=== PATIENT | male | born 1965 | race African-American/Black ===

== ENCOUNTER 2016-11-13 12:27 | Emergency (ER) | payer MEDICARE, MEDICAID ==
[~2016-11-13] VITALS: Ht 188 cm; Wt 88.5 kg
[~2016-11-13 12:27] MED LIST: COLCHICINE0.6 M1 PO; COLCRYS0.6 M1 PO; DEPAKOTE ER250 MG ORAL; DEPAKOTE250 MG PO; DIVALPROEX SOD250 M1 PO; INDOCIN25 MG ORAL; INDOCIN50 MG RECTAL; INDOMETHACIN50 MG PO; NORCO 5-325 TA1 EACH ORAL; TUSSIONEX PENN480 ML PO
[2016-11-13] MEDS ORDERED: INDOCIN25 MG ORAL (12:51)
[2016-11-13] MEDS ORDERED: Indomethacin 75 MG CAPSULE.ER ORAL ONE (13:00)
[2016-11-13 13:07] VITALS: BP 121/88
[2016-11-13 13:14] VITALS: BP 121/88
--- NOTE | 2016-11-13 13:43 | Emergency Room Report ---
History of Present Illness General Chief Complaint: Pain Source: Patient Present Illness HPI Patient is a 31-year-old male who presented after increased left upper extremity pain. Patient gradual onset of symptoms. Patient prior history of gout. Patient states that he's had multiple episodes of similar symptoms in the past. Patient ran out of his indomethacin. Patient was requesting a refill of medications. Patient had no recent alcohol use. Patient states that he's modified his diet. Patient states that he's had a gout flares multiple areas Allergies: Coded Allergies: No Known Allergies (Unverified , 03/27/14) Patient History Past Medical History: see triage record Reviewed Nursing Documentation: PMH: Agreed, PSxH: Agreed Nursing Documentation-PMH Hx Diabetes: No Hx Seizures: Yes - Last 2012 Review of Systems All Other Systems: negative except mentioned in HPI Physical Exam Vital Signs Date Time Temp Pulse Resp B/P Pulse Ox O2 Delivery O2 Flow Rate FiO2 11/13/16 12:37 97.9 68 15 121/88 99 Room Air General Appearance: well appearing, no apparent distress, alert, GCS 15 Head: normocephalic, atraumatic ENT: hearing grossly normal, normal voice Neck: full range of motion, supple Respiratory: no respiratory distress, speaking full sentences Musculoskeletal: normal inspection, decreased range of mation, swelling, other - multiple gouty changes to extremities, tophi bilateral upper extremities Neurologic: normal gait Psychiatric: mood/affect normal Skin: no rash Medical Decision Making Diagnostic Impression: Primary Impression: Gout attack ER Course Patient presented for arthritic pain. Differential diagnosis included was not limited to gout, septic joint, fracture, dislocation, among others. Patient's benign exam and does not appear to require any further imaging or laboratory testing at this time. The patient was given Indocin. The patient was advised followup with his primary care physician for further evaluation and treatment. The patient is advised to continue dietary modifications. Avoid alcohol. Last Vital Signs Date Time Temp Pulse Resp B/P Pulse Ox O2 Delivery O2 Flow Rate FiO2 11/13/16 13:14 97.9 79 15 121/88 99 Room Air Status: improved Disposition: HOME, SELF-CARE Condition: Stable Scripts Indomethacin (Indomethacin) 50 Mg Capsule 50 MG ORAL BID, #15 CAP 0 Refills Prov: Brooks Finnegan 11/13/16 Referrals: NOT CHOSEN [facility]/MD,REFERRING (PCP) Patient Instructions: Gout Brooks Finnegan Nov 13, 2016 13:43
== END 2016-11-13 13:18 | disposition home or self-care (01) ==
LOC: EMR 12:55
DX: M10.9 Gout, unspecified (principal)
CPT/HCPCS: 99283

== ENCOUNTER 2016-11-23 10:02 | Emergency (ER) | payer MEDICARE, MEDICAID ==
[~2016-11-23] VITALS: Ht 188 cm; Wt 88.5 kg
[2016-11-23 11:29] VITALS: BP 119/79
[2016-11-23] MEDS ORDERED: ACETAMINOPHEN-1 EAC1 ORAL (12:23)
[2016-11-23 12:29] VITALS: BP 119/79
--- NOTE | 2016-11-23 13:32 | Diagnostic Imaging Report ---
Indications:PAIN Technique: Three or 4 views of the left elbow Comparison: None Findings: Positioning is somewhat limited. Per technologist, patient unable to be positioned optimally due to pain. There is an ill-defined soft tissue mass which is slightly hypoattenuating relative to subcutaneous fat posterior and medial to the medial upper condyle. This measures approximately 4.8 x 2 cm. There is a large erosion of the medial olecranon. No definite acute fractures. No definite joint effusion. The joint spaces are preserved. Impression:No definite acute bony trauma Soft tissue mass adjacent to the medial upper condyle. Per referring physician, has history of gout. 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 Erosion of the olecranon, likely related to the above
--- NOTE | 2016-11-23 14:28 | Diagnostic Imaging Report ---
Indications: PAIN Technique: Two views of the left humerus Comparison: None Findings: No acute fractures. No dislocations. Impression: Negative
--- NOTE | 2016-11-23 17:12 | Emergency Room Report ---
History of Present Illness General Chief Complaint: Pain Source: Patient Present Illness HPI 51-year-old male presents ED complaining of left elbow pain. States 2 days ago he had a seizure and subsequent fall. Patient landed on his left elbow. Patient has history of seizures. Take Depakote. Patient is here complaining of persistent left elbow pain. Pain is a throbbing 8 out of 10, nonradiating. No other aggravating relieving factors. Patient denies any other injuries. Has history of gout. States he has gout in his left wrist. No other aggravating relieving factors. Denies any other associated symptoms Allergies: Coded Allergies: No Known Allergies (Unverified , 03/27/14) Patient History Past Medical History: seizures, other - gout Past Surgical History: none Pertinent Family History: none Social History: Denies: alcohol use, drug use, smoking Immunizations: UTD Reviewed Nursing Documentation: PMH: Agreed, PSxH: Agreed Nursing Documentation-PMH Past Medical History: No History, Except For Hx Diabetes: No Hx Cerebrovascular Accident: No - MEMORY LOSS Hx Seizures: Yes Review of Systems All Other Systems: negative except mentioned in HPI Physical Exam Vital Signs Date Time Temp Pulse Resp B/P Pulse Ox O2 Delivery O2 Flow Rate FiO2 11/23/16 10:14 98.1 82 18 112/82 98 Room Air Sp02 EP Interpretation: reviewed, normal General Appearance: no apparent distress, alert, GCS 15, non-toxic Head: normocephalic Eyes: bilateral eye PERRL, bilateral eye normal inspection ENT: normal ENT inspection Neck: normal inspection Respiratory: normal inspection Cardiovascular #1: normal inspection Gastrointestinal: normal inspection Rectal: deferred Genitourinary: no CVA tenderness Musculoskeletal: decreased range of motion, tender - L elbow. 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 Patient does have a history of gout placed in satish wrap Diagnosis - elbow contusion, gout Stable and discharged to home with prescription for Tylenol #3. continue indomethacin and colchicine as treatment for his gout. apply ice, keep elevated. weight bear as tolerated. Followup with PMD. Return to ED if symptoms recur or worsen Other X-Ray Diagnostic Results Other X-Ray Diagnostic Results : X-Ray Ordered: L elbow, L humerus EP Interpretation: No Findings: no fractures, no dislocation, no soft tissue swelling Number of Views: 3 Other Impression Left elbow-No fracture, no dislocation, no soft tissue swelling, findings suggestive of gouty arthritis Left humerus-No fracture, no dislocation, no soft tissue swelling Last Vital Signs Date Time Temp Pulse Resp B/P Pulse Ox O2 Delivery O2 Flow Rate FiO2 11/23/16 12:29 98.3 78 16 119/79 97 Room Air Status: improved Disposition: HOME, SELF-CARE Condition: Stable Scripts Acetaminophen With Codeine (T#3) (TYLENOL #3 TAB*) Y Tab 1 TAB ORAL Q8H Y for For Pain, #20 TAB Prov: GEETA DUTTON M.D. 11/23/16 Patient Instructions: Elbow Contusion, [id number] GEETA DUTTON M.D. Nov 23, 2016 17:12
== END 2016-11-23 12:29 | disposition home or self-care (01) ==
LOC: EMR 10:46
DX: S50.02XA Contusion of left elbow, initial encounter (principal); W19.XXXA Unspecified fall, initial encounter; Y92.9 Unspecified place or not applicable; M10.9 Gout, unspecified; G40.909 Epilepsy, unspecified, not intractable, without status epilepticus
CPT/HCPCS: 29260; 99283

== ENCOUNTER 2016-12-26 14:28 | Emergency (ER) | payer MEDICARE, MEDICAID ==
[~2016-12-26] VITALS: Ht 188 cm; Wt 88.5 kg
[~2016-12-26 14:28] MED LIST changes: +ACETAMINOPHEN-1 EAC1 ORAL
[2016-12-26] MEDS ORDERED: Indomethacin 25mg cap ORAL ONE (15:00)
[2016-12-26 15:05] VITALS: BP 113/77
[2016-12-26] MEDS ORDERED: COLCHICINE0.6 M1 PO (15:33)
[2016-12-26] MEDS ORDERED: INDOCIN25 MG ORAL (15:33)
[2016-12-26 15:38] VITALS: BP 113/77
--- NOTE | 2016-12-26 16:24 | Emergency Room Report ---
History of Present Illness General Chief Complaint: Edema Source: Patient Present Illness HPI The patient is a 51-year-old male with a history of gout presenting with left hand pain. He states that this is usually where he states his pain from gout. Pain and swelling began 2 days prior after he states he had an excess of high fructose corn syrup. He denies increased protein consumption or alcohol use. Pain is described as a 9 of 10 dull ache and does not radiate from the hand. He has not tried any medications yet. He denies any other symptoms including N, V, F, chills, rash Allergies: Coded Allergies: No Known Allergies (Unverified , 03/27/14) Patient History Past Medical History: see triage record Pertinent Family History: none Reviewed Nursing Documentation: PMH: Agreed, PSxH: Agreed Nursing Documentation-PMH Past Medical History: No History, Except For Hx Diabetes: No Hx Cerebrovascular Accident: No - MEMORY LOSS Hx Seizures: Yes Review of Systems All Other Systems: negative except mentioned in HPI Physical Exam Vital Signs Date Time Temp Pulse Resp B/P Pulse Ox O2 Delivery O2 Flow Rate FiO2 12/26/16 14:49 98.1 65 14 113/77 98 Room Air Sp02 EP Interpretation: reviewed, normal General Appearance: no apparent distress, alert, GCS 15, non-toxic Head: normocephalic, atraumatic Eyes: bilateral eye PERRL, bilateral eye normal inspection ENT: hearing grossly normal, normal pharynx, no angioedema, normal voice Musculoskeletal: swelling - diffuse L hand, tender - diffuse TTP over the L hand Neurologic: alert, oriented x3, responsive, motor strength/tone normal, sensory intact, speech normal Psychiatric: judgement/insight normal, memory normal, mood/affect normal, no suicidal/homicidal ideation Skin: normal color, no rash, warm/dry, well hydrated Lymphatic: no adenopathy Medical Decision Making PA Attestation Dr. Cuvler is my supervising physician. Patient management was discussed with my supervising physician Diagnostic Impression: Primary Impression: Gout Qualified Codes: M10.9 - Gout, unspecified ER Course The patient is a 51-year-old male with a history of gout presenting with left hand pain Ddx considered include but not limited to sprain/strain, fracture, contusion, gout, cellulitis PE: vitals WNL. Left hand diffuse swelling and tenderness to palpation. Tophi present. No erythema Full AROM The patient will be discharged home and needs to follow up with PMD. Prescription for colchicine and indomethacin given. ER precautions given Last Vital Signs Date Time Temp Pulse Resp B/P Pulse Ox O2 Delivery O2 Flow Rate FiO2 12/26/16 15:38 98.1 14 113/77 98 Room Air 12/26/16 15:05 65 Status: improved Disposition: HOME, SELF-CARE Condition: Stable Scripts Colchicine (Colchicine) 0.6 Mg Capsule 0.6 MG PO QHS, #10 CAP Prov: DANNY TEE.A. 12/26/16 Indomethacin (Indomethacin) 50 Mg Capsule 50 MG ORAL Q8H, #15 CAP 0 Refills Prov: DANNY TEE.A. 12/26/16 Patient Instructions: Gout Additional Instructions: I discussed my findings with the patient. All questions and concerns have been answered. Treatment and medication compliance have been addressed. I advised the patient that they need to follow up with PMD in 3-5 days. Return to ED if symptoms worsen, new symptoms arise, or if needed for any reason. Patient verbalized understanding of discharge instructions. ADNNY TEE December 26, 2016 16:24
== END 2016-12-26 15:38 | disposition home or self-care (01) ==
LOC: EMR 15:32
DX: M10.9 Gout, unspecified (principal); M79.89 Other specified soft tissue disorders; Z86.69 Personal history of other diseases of the nervous system and sense organs
CPT/HCPCS: 99284

== ENCOUNTER 2017-02-22 15:47 | Emergency (ER) | payer MEDICARE, MEDICAID ==
[~2017-02-22] VITALS: Ht 188 cm; Wt 88.5 kg
--- NOTE | 2017-02-22 16:30 | Emergency Room Report ---
History of Present Illness General Chief Complaint: Lower Extremity Injury Source: Patient Present Illness HPI 52 YO Male presents to the ED c/O tenderness, swelling and redness with significant sensitivity to the lateral left ankle x 2 days. pt. states he has a hx of gout, and onset was after eating several meals that contained red meat. pt. denies alcohol use. pt. states he is out of his indomethacin at home. pt. denies fevers, chills, rashes, lesions, trauma or fall. pt. states no relieving factors. Denies numbness tingling or loss of sensation or gross motor movements of the extremities, incontinence of bowel or bladder. Denies CP, Palpitations, LOC, AMS, dizziness, Changes in Vision, Sensation, paresthesias, or a sudden severe headache. Allergies: Coded Allergies: No Known Allergies (Unverified , 03/27/14) Patient History Past Medical History: see triage record Past Surgical History: none Pertinent Family History: none Immunizations: UTD Reviewed Nursing Documentation: PMH: Agreed, PSxH: Agreed Nursing Documentation-PMH Past Medical History: No History, Except For Hx Diabetes: No Hx Cerebrovascular Accident: No - MEMORY LOSS Hx Seizures: Yes Review of Systems All Other Systems: negative except mentioned in HPI Physical Exam Vital Signs Date Time Temp Pulse Resp B/P Pulse Ox O2 Delivery O2 Flow Rate FiO2 02/22/17 16:03 98.2 85 18 108/73 100 Room Air Sp02 EP Interpretation: reviewed, normal General Appearance: no apparent distress, alert, GCS 15, non-toxic Head: normocephalic, atraumatic Eyes: bilateral eye PERRL, bilateral eye normal inspection ENT: hearing grossly normal, normal pharynx, no angioedema, normal voice Neck: full range of motion, supple/symm/no masses Respiratory: lungs clear, normal breath sounds, speaking full sentences Cardiovascular #1: regular rate, rhythm, no edema Rectal: deferred Musculoskeletal: back normal, gait/station normal, normal range of motion, no calf tenderness, inflammation - lateral left ankle, FROM, tender - lateral left ankle, erythema noted and increased temp. to palpation. Neurologic: alert, oriented x3, responsive, motor strength/tone normal, sensory intact, speech normal Psychiatric: judgement/insight normal, memory normal, mood/affect normal, no suicidal/homicidal ideation Skin: no rash, warm/dry, well hydrated, other - lateral left ankle, erythema noted and increased temp. to palpation. Medical Decision Making PA Attestation Dr. Marsh is my supervising Physician whom patient management has been discussed with. Diagnostic Impression: Primary Impression: Gout attack Qualified Codes: M10.9 - Gout, unspecified ER Course Pt. presents to the ED c/o Pain and swelling of Left ankle x 2 Day(s). pt states hx of gout, and recently ate moderate amt. of red meat. denies lesions , trauma or fall. denies fevers or chills. - Pt. prescribed burning sensitivity and 10/10 pain. Ddx considered but are not limited to cellulitis, Septic joint, pseudogout fracture, d/L, gout Vital signs: are WNL, pt. is afebrile H&PE are most consistent with recurrent gout attack. ORDERS: none required at this time, the diagnosis is clinical ED INTERVENTIONS: -1.2 mg Colchicine PO DISCHARGE: At this time pt. is stable for d/c to home. Will provide printed patient care instructions, and any necessary prescriptions. Care plan and follow up instructions have been discussed with the patient prior to discharge. Last Vital Signs Date Time Temp Pulse Resp B/P Pulse Ox O2 Delivery O2 Flow Rate FiO2 02/22/17 16:03 98.2 85 18 108/73 100 Room Air Disposition: HOME, SELF-CARE Condition: Stable Scripts Colchicine (Colchicine) 0.6 Mg Capsule 0.6 MG PO DAILY, #2 CAP Prov: Triny Ibrahim 02/22/17 Indomethacin (INDOMETHACIN) 50 Mg Capsule 50 MG PO TID, #15 CAP Prov: Triny Ibrahim 02/22/17 Patient Instructions: Gout, [id number] Additional Instructions: Take medications as directed. Follow up with a Primary Care Provider in 3-5 days, even if your symptoms have resolved. --Please review list of primary care clinics, if you do not already have a primary care provider - Avoid consumption of red meat and alcohol. Return sooner to ED if new symptoms occur, or current symptoms become worse. - Please note that this Emergency Department Report was dictated using [employer] accountant technology software, occasionally this can lead to erroneous entry secondary to interpretation by the dictation equipment. Triny Ibrahim Feb 22, 2017 16:30
[2017-02-22] MEDS ORDERED: COLCHICINE0.6 M1 PO (16:33)
[2017-02-22] MEDS ORDERED: INDOMETHACIN50 MG PO (16:33)
[2017-02-22 16:40] VITALS: BP 108/73
== END 2017-02-22 16:48 | disposition home or self-care (01) ==
LOC: EMR 16:15
DX: M10.9 Gout, unspecified (principal)
CPT/HCPCS: 99284

== ENCOUNTER 2017-05-25 20:12 | Emergency (ER) | payer MEDICAID, MEDICARE ==
[~2017-05-25] VITALS: Ht 188 cm; Wt 88.5 kg
[2017-05-25 20:30] VITALS: BP 116/74
[2017-05-25] MEDS ORDERED: NORCO 5-325 TA1 EACH ORAL (20:42)
[2017-05-25] MEDS ORDERED: INDOMETHACIN50 MG PO (20:42)
[2017-05-25] MEDS ORDERED: COLCHICINE0.6 M1 PO (20:42)
[2017-05-25 20:55] VITALS: BP 116/74
--- NOTE | 2017-05-25 21:35 | Emergency Room Report ---
History of Present Illness General Chief Complaint: Pain Source: Patient Present Illness HPI Patient presents emergency department today complaining of right foot pain. Patient has history of gout. He states that he's having a calcium formation. He does have swelling of right lower extremity. It over the area of the foot. Denies any trauma. No other complaints are noted. Symptoms are fairly typical for his usual gout exacerbation. He is requesting pain medications.No other modifying factors. No other associated signs and symptoms. No other complaints were noted.. Allergies: Coded Allergies: No Known Allergies (Unverified , 03/27/14) Patient History Past Medical History: DM, CVA/TIA, seizures Past Surgical History: none Pertinent Family History: none Social History: Denies: smoking, alcohol use, drug use Reviewed Nursing Documentation: PMH: Agreed, PSxH: Agreed Nursing Documentation-PMH Hx Diabetes: No Hx Cerebrovascular Accident: No - MEMORY LOSS Hx Seizures: Yes Review of Systems All Other Systems: negative except mentioned in HPI Physical Exam Vital Signs Date Time Temp Pulse Resp B/P (MAP) Pulse Ox O2 Delivery O2 Flow Rate FiO2 05/25/17 20:19 98.1 84 16 116/74 100 Room Air Sp02 EP Interpretation: reviewed, normal General Appearance: normal inspection, well appearing, no apparent distress, alert Head: atraumatic Eyes: bilateral eye PERRL ENT: normal ENT inspection, hearing grossly normal, normal voice Neck: normal inspection, full range of motion, supple, no bony tend Respiratory: normal inspection, lungs clear, normal breath sounds, no respiratory distress, no retraction, no wheezing Cardiovascular #1: regular rate, rhythm, no edema Gastrointestinal: normal inspection, normal bowel sounds, non tender, soft, no guarding, no hernia Genitourinary: no CVA tenderness Musculoskeletal: back normal, inflammation - right foot, swelling - right foot Neurologic: normal inspection, alert, responsive, speech normal Psychiatric: normal inspection, judgement/insight normal, mood/affect normal Skin: normal inspection, normal color, no rash Medical Decision Making Diagnostic Impression: Primary Impression: Gout ER Course Patient presents emergency department today complaining of right foot pain. Differential considerations include arthritis, gout, septic joint just name a few. Patient's exam is consistent with gout. I felt the patient require pain medications. Patient has usual exacerbations in this is fairly typical. Therefore I felt that no further workup is indicated. Patient was given pain medications per his request. Patient was also given indomethacin and colchicine.Patient is advised to follow up with primary doctor in 2-3 days and return the emergency room for any worsening symptoms and as needed. Last Vital Signs Date Time Temp Pulse Resp B/P (MAP) Pulse Ox O2 Delivery O2 Flow Rate FiO2 05/25/17 20:19 98.1 84 16 116/74 100 Room Air Status: improved Disposition: HOME, SELF-CARE Condition: Stable Scripts Colchicine (Colchicine) 0.6 Mg Capsule 0.6 MG PO BID, #20 CAP Prov: GINI BETANCOURT M.D. 05/25/17 Indomethacin (INDOMETHACIN) 50 Mg Capsule 50 MG PO TID for 5 Days, #15 CAP Prov: GINI BETANCOURT M.D. 05/25/17 Hydrocodone Bit/Acetaminophen 5-325* (NORCO 5-325*) 1 Each Tablet 1 TAB ORAL Q6H Y for For Pain, #20 TAB 0 Refills Prov: GINI BETANCOURT M.D. 05/25/17 Patient Instructions: Gout, [id number] GINI BETANCOURT M.D. May 25, 2017 21:35
== END 2017-05-25 20:55 | disposition home or self-care (01) ==
LOC: EMR 20:34
DX: M10.9 Gout, unspecified (principal); E11.9 Type 2 diabetes mellitus without complications; Z86.73 Personal history of transient ischemic attack (TIA), and cerebral infarction without residual deficits
CPT/HCPCS: 99284

== ENCOUNTER 2017-07-15 22:53 | Emergency (ER) | payer MEDICARE ==
[~2017-07-15] VITALS: Ht 188 cm; Wt 83.9 kg
[2017-07-15 23:40] VITALS: BP 125/78
[2017-07-16] MEDS ORDERED: Bactrim DS (160mg/800mg) tab ORAL ONE (00:15)
[2017-07-16] MEDS ORDERED: IBUPROFEN600 MG ORAL (00:20)
[2017-07-16] MEDS ORDERED: BACTRIM DS TAB1 EAC1 ORAL (00:20)
--- NOTE | 2017-07-16 00:20 | Emergency Room Report ---
History of Present Illness General Chief Complaint: Skin Rash/Abscess Source: Patient Present Illness HPI This is a 52-year-old male with no past medical history. He presents with pain in his left armpit. Onset for last 3 days. Pain 8/10. Worse with movement. Worse with palpation. No drainage. Never had this problem before. He does shave his armpits. No other complaint. Allergies: Coded Allergies: No Known Allergies (Unverified , 03/27/14) Patient History Past Medical History: none Past Surgical History: none Social History: Denies: smoking Immunizations: other Reviewed Nursing Documentation: PMH: Agreed, PSxH: Agreed Nursing Documentation-PMH Hx Diabetes: No Hx Cerebrovascular Accident: No - MEMORY LOSS Hx Seizures: Yes Review of Systems Eye: Denies: eye pain, blurred vision ENT: Denies: ear pain, nose congestion, throat swelling Respiratory: Denies: cough, shortness of breath Cardiovascular: Denies: chest pain, palpitations Gastrointestinal: Denies: abdominal pain, diarrhea, nausea, vomiting Musculoskeletal: Denies: back pain, joint pain Skin: Denies: rash Neurological: Denies: headache, numbness Endocrine: Denies: increased thirst, increased urine Hematologic/Lymphatic: Denies: easy bruising All Other Systems: negative except mentioned in HPI Physical Exam Vital Signs Date Time Temp Pulse Resp B/P (MAP) Pulse Ox O2 Delivery O2 Flow Rate FiO2 07/15/ 23:21 97.9 73 15 125/78 100 Room Air vitals normal Sp02 EP Interpretation: reviewed, normal General Appearance: well appearing, no apparent distress, alert Head: normocephalic, atraumatic Eyes: bilateral eye PERRL, bilateral eye EOMI ENT: hearing grossly normal, normal pharynx Neck: full range of motion, supple, no meningismus Respiratory: chest non-tender, lungs clear, normal breath sounds Cardiovascular #1: regular rate, rhythm, no murmur Gastrointestinal: normal bowel sounds, non tender, no mass, no organomegaly, no bruit, non-distended Musculoskeletal: back normal, gait/station normal, normal range of motion, other - Left axilla: There is two indurated area measuring about 1 x 2 cm. her is a whitish necrotic center. Psychiatric: mood/affect normal Skin: warm/dry Procedures Incision and Drainage Incision and Drainage : Consent: Verbal Site: Left axilla Blade Size: 11 I & D Procedure: betadine prep, sterile drapes applied, sterile dressing applied Wound Location: axilla Anesthesia: 1% Lidocaine Volume Anesthetic (ccs): 3 Patient Tolerated: Well Complications: None Progress Area clean initially with chlorhexidine. Then with Betadine. I made to incision and there was moderate amount of pus expressed. Loculated area broken up. Wound irrigated. Patient tolerated procedure without a problem. Medical Decision Making Diagnostic Impression: Primary Impression: Abscess of axilla, left ER Course Patient was abscess axilla. No deep infection. We'll discharge home. Last Vital Signs Date Time Temp Pulse Resp B/P (MAP) Pulse Ox O2 Delivery O2 Flow Rate FiO2 07/15/17 23:21 97.9 73 15 125/78 100 Room Air Status: improved Disposition: HOME, SELF-CARE Condition: Stable Scripts Ibuprofen* (MOTRIN*) 600 Mg Tablet 600 MG ORAL Q8H Y for For Pain, #30 TAB 0 Refills Prov: LUCIEN CHAUDHRY M.D. 07/16/17 Trimethoprim/Sulfamethoxazole 160/800* (BACTRIM DS TABLET*) 1 Each Tablet 1 TAB ORAL Q12H, #14 TAB 0 Refills Prov: LUCIEN CHAUDHRY M.D. 07/16/17 Referrals: NOT CHOSEN [facility]/,REFERRING (PCP) Patient Instructions: Abscess Additional Instructions: Followup with your DrJeferson in 2-3 days for recheck. Return if worse. LUCIEN CHAUDHRY M.D. Jul 16, 2017 00:20
[2017-07-16 00:40] VITALS: BP 125/78
== END 2017-07-16 00:40 | disposition home or self-care (01) ==
LOC: EMR 23:51
DX: L03.112 Cellulitis of left axilla (principal)
CPT/HCPCS: 10060; 99284

== ENCOUNTER 2017-08-20 00:18 | Emergency (ER) | payer MEDICARE ==
[~2017-08-20] VITALS: Ht 188 cm; Wt 83.9 kg
[~2017-08-20 00:18] MED LIST changes: +BACTRIM DS TAB1 EAC1 ORAL; +IBUPROFEN600 MG ORAL
[2017-08-20 00:30] VITALS: BP 117/78
[2017-08-20] MEDS ORDERED: BACTRIM DS TAB1 EAC1 ORAL (01:33)
--- NOTE | 2017-08-20 01:33 | Emergency Room Report ---
History of Present Illness General Chief Complaint: General Complaint Source: Patient Present Illness HPI This is a 52-year-old male who had a history of left axilla abscess. It I need about 3 weeks ago. He came in with a right abscess to the axilla. Onset today. Tender to palpation. No drainage. No fever. Allergies: Coded Allergies: No Known Allergies (Unverified , 03/27/14) Patient History Past Medical History: see triage record, old chart reviewed Past Surgical History: other Pertinent Family History: none Social History: Denies: smoking Immunizations: other Reviewed Nursing Documentation: PMH: Agreed, PSxH: Agreed Nursing Documentation-PMH Hx Diabetes: No Hx Cerebrovascular Accident: No - MEMORY LOSS Hx Seizures: Yes Review of Systems Eye: Denies: eye pain, blurred vision ENT: Denies: ear pain, nose congestion, throat swelling Respiratory: Denies: cough, shortness of breath Cardiovascular: Denies: chest pain, palpitations Gastrointestinal: Denies: abdominal pain, diarrhea, nausea, vomiting Musculoskeletal: Denies: back pain, joint pain Skin: Denies: rash Neurological: Denies: headache, numbness Endocrine: Denies: increased thirst, increased urine Hematologic/Lymphatic: Denies: easy bruising All Other Systems: negative except mentioned in HPI Physical Exam Vital Signs Date Time Temp Pulse Resp B/P (MAP) Pulse Ox O2 Delivery O2 Flow Rate FiO2 08/20/17 00:25 98.2 71 15 117/78 97 Room Air vitals normal Sp02 EP Interpretation: reviewed, normal General Appearance: well appearing, no apparent distress, alert Head: normocephalic, atraumatic Eyes: bilateral eye PERRL, bilateral eye EOMI ENT: hearing grossly normal, normal pharynx Neck: full range of motion, supple, no meningismus Respiratory: chest non-tender, lungs clear, normal breath sounds Cardiovascular #1: regular rate, rhythm, no murmur Gastrointestinal: normal bowel sounds, non tender, no mass, no organomegaly, no bruit, non-distended Musculoskeletal: back normal, gait/station normal, normal range of motion, tender - Right axilla: Is a small indurated area measuring about 3-4 mm. Tender to palpation. Neurologic: alert, oriented x3 Psychiatric: mood/affect normal Skin: warm/dry Medical Decision Making Diagnostic Impression: Primary Impression: Abscess of axilla, right ER Course Patient with a small abscess to the right axilla area. I wanted to I&D. Patient was cooperating until the point of any cutting it. Is able to clean it with Betadine and numb it with 1% lidocaine without epinephrine. As I was about to cut it with a scalpel he keeps jerking back and keep looking at it. I am uncomfortable with him not cooperating. I do not want to cut myself workup him in a different area. Explained this to the patient. He wanted to try antibiotics first. Last Vital Signs Date Time Temp Pulse Resp B/P (MAP) Pulse Ox O2 Delivery O2 Flow Rate FiO2 08/20/17 00:25 98.2 71 15 117/78 97 Room Air Status: unchanged Disposition: HOME, SELF-CARE Condition: Stable Scripts Trimethoprim/Sulfamethoxazole 160/800* (BACTRIM DS TABLET*) 1 Each Tablet 1 TAB ORAL Q12H, #14 TAB 0 Refills Prov: LUCIEN CHAUDHRY M.D. 08/20/17 Referrals: NOT CHOSEN IPA/,REFERRING (PCP) Additional Instructions: Clean area with hydrogen peroxide. Followup your DrJeferson in 2-3 days recheck. Return if swelling get worse. LUCIEN CHAUDHRY M.D. Aug 20, 2017 01:33
[2017-08-20 01:43] VITALS: BP 117/78
[2017-08-20] MEDS ORDERED: BACITRACIN-P28.35 GM TP (17:21)
== END 2017-08-20 01:45 | disposition home or self-care (01) ==
LOC: EMR 00:29
DX: L02.411 Cutaneous abscess of right axilla (principal)
CPT/HCPCS: 99283

== ENCOUNTER 2017-08-20 15:52 | Emergency (ER) | payer MEDICARE, MEDICAID ==
[~2017-08-20] VITALS: Ht 188 cm; Wt 83.9 kg
[2017-08-20 16:10] VITALS: BP 110/63
[2017-08-20] MEDS ORDERED: BACITRACIN-P28.35 GM TP (17:21)
--- NOTE | 2017-08-20 17:23 | Emergency Room Report ---
History of Present Illness General Chief Complaint: Skin Rash/Abscess Source: Patient, Medical Record (Ervin Altamirano) Present Illness HPI 52 yo male presents to ER with complaints of abscess in right arm pit. Patient complains of TTP, denies pain with movement. Patient reports being seen in this ER this morning for same complaint; reports doctor did not perform I&D at that time and discharged on antibiotics. Patient states he did not receive prescription for antibiotics with discharge packet. States he was called later by ER nurse to return to [facility] prescription for antibiotic. Patient states he returned to ER to receive prescription and to be seen again to discuss need for I&D. Patient denies fever, chest pain, SOB, rash. (Ervin Altamirano) Allergies: Coded Allergies: No Known Allergies (Unverified , 03/27/14) Patient History Past Medical History: see triage record Immunizations: UTD Reviewed Nursing Documentation: PMH: Agreed, PSxH: Agreed (Ervin Altamirano) Nursing Documentation-PMH Past Medical History: No History, Except For Hx Diabetes: No Hx Cerebrovascular Accident: No - MEMORY LOSS Hx Seizures: Yes (Ervni Altamirano) Review of Systems All Other Systems: negative except mentioned in HPI (Ervin Altamirano) Physical Exam Vital Signs Date Time Temp Pulse Resp B/P (MAP) Pulse Ox O2 Delivery O2 Flow Rate FiO2 08/20/17 16:06 98.4 59 18 102/58 98 Room Air Sp02 EP Interpretation: reviewed, normal General Appearance: no apparent distress, alert, GCS 15, non-toxic Head: normocephalic, atraumatic Eyes: bilateral eye normal inspection, bilateral eye PERRL ENT: hearing grossly normal, normal pharynx, normal voice Neck: full range of motion Respiratory: lungs clear, normal breath sounds, speaking full sentences Cardiovascular #1: regular rate, rhythm Genitourinary: normal inspection, no CVA tenderness Musculoskeletal: back normal, gait/station normal, normal range of motion, non- tender Neurologic: alert, oriented x3, responsive, motor strength/tone normal, sensory intact, speech normal Psychiatric: judgement/insight normal, mood/affect normal Skin: no rash, other - right axilla: <1cm raised erythematous pustule with subcutaneous palpable nodule, TTP, no active bleeding, no pus drainage (Ervin Altamirano) Medical Decision Making PA Attestation Dr. Strong is my supervising physician with whom patient management has been discussed with. (Ervin Altamirano) Diagnostic Impression: Primary Impression: Abscess ER Course Pt. presents to the ED c/o abscess Ddx considered but are not limited to cellulitis, abscess, sebaceous cyst, carbuncle, folliculitis. Vital signs: are WNL, pt. is afebrile ORDERS:None required at this time. ED INTERVENTIONS: None required at this time. DISCHARGE: -Rx provided for Bactrim. Rx was from patients previous visit to ER. -Rx provided for Bacitracin ointment. At this time pt. is stable for d/c to home. Provide printed patient care instructions and any necessary prescriptions. Care plan and follow up instructions have been discussed with the patient prior to discharge. Patient agrees with current treatment plan. Patient instructed to follow-up with primary care provider in 2 - 3 days for wound recheck. Patient questions asked and answered. ER precautions given. Patient instructed to return to ER immediately for any new or worsening of symptoms including but not limited to fever, worsening of pain symptoms. (Ervin Altamirano) ER Course Patient examined by me. Small nodule in axilla without fluctuance. Too small to lola at this time. Plan to cover with antibiotics. Re-evaluated as needed. (Arthur Strong M.D.) Last Vital Signs Date Time Temp Pulse Resp B/P (MAP) Pulse Ox O2 Delivery O2 Flow Rate FiO2 08/20/17 16:10 98.4 72 17 110/63 99 Room Air (Ervin Altamirano) Last Vital Signs Date Time Temp Pulse Resp B/P (MAP) Pulse Ox O2 Delivery O2 Flow Rate FiO2 08/20/17 17:40 98.4 72 17 110/63 99 Room Air Status: unchanged (Arthur Strong M.D.) Disposition: HOME, SELF-CARE Condition: Stable Scripts Bacitracin/Polymyxin B Sulfate (BACITRACIN-POLYMYXIN OINTMENT) 28.35 Gm Oint...g. 1 APPLIC TP BID for 7 Days, GM Prov: Ervin Altamirano 08/20/17 Referrals: NOT CHOSEN IPA/,REFERRING (PCP) Patient Instructions: Abscess Additional Instructions: At this time pt. is stable for d/c to home. Rx provided to patient from previous visit. Rx provided for antibiotic ointment to apply to affected area twice a day. Will provide printed patient care instructions and any necessary prescriptions. Care plan and follow up instructions have been discussed with the patient prior to discharge. Patient instructed to follow-up with primary care provider in 2 - 3 days for wound recheck. Patient questions asked and answered. ER precautions given. Patient instructed to return to ER immediately for any new or worsening of symptoms including but not limited to fever, worsening of pain symptoms. Ervin Altamirano Aug 20, 2017 17:23 Arthur Strong M.D. Aug 25, 2017 09:56
[2017-08-20 17:40] VITALS: BP 110/63
== END 2017-08-20 17:40 | disposition home or self-care (01) ==
LOC: EMR 16:37
DX: L02.411 Cutaneous abscess of right axilla (principal)
CPT/HCPCS: 99283

== ENCOUNTER 2017-08-25 21:38 | Emergency (ER) | payer MEDICARE, MEDICAID ==
[~2017-08-25] VITALS: Ht 188 cm; Wt 83.9 kg
[~2017-08-25 21:38] MED LIST changes: +BACITRACIN-P28.35 GM TP
[2017-08-25 22:00] VITALS: BP 103/65
[2017-08-25] MEDS ORDERED: MUPIROCIN22 GM TOPIC (22:48)
--- NOTE | 2017-08-25 22:49 | Emergency Room Report ---
History of Present Illness General Chief Complaint: General Complaint Source: Patient Present Illness HPI This is a 51-year-old male who get recurrent abscesses. I saw him 2 days ago for right axilla abscess there was small but I want to I&D it. He was too nervous and refuse. He came back the next day and was discharged with antibiotics and he picked up his antibiotic prescribed before. He's been taking it but now or abscess or swollen up. No fever chills but no trauma. No other complaint. Allergies: Coded Allergies: No Known Allergies (Unverified , 03/27/14) Patient History Past Medical History: see triage record, old chart reviewed Past Surgical History: other Pertinent Family History: none Social History: Denies: smoking Immunizations: other Reviewed Nursing Documentation: PMH: Agreed, PSxH: Agreed Nursing Documentation-PMH Past Medical History: No History, Except For Hx Diabetes: No Hx Cerebrovascular Accident: No - MEMORY LOSS Hx Seizures: Yes Review of Systems Eye: Denies: eye pain, blurred vision ENT: Denies: ear pain, nose congestion, throat swelling Respiratory: Denies: cough, shortness of breath Cardiovascular: Denies: chest pain, palpitations Gastrointestinal: Denies: abdominal pain, diarrhea, nausea, vomiting Musculoskeletal: Denies: back pain, joint pain Skin: Denies: rash Neurological: Denies: headache, numbness Endocrine: Denies: increased thirst, increased urine Hematologic/Lymphatic: Denies: easy bruising All Other Systems: negative except mentioned in HPI Physical Exam Vital Signs Date Time Temp Pulse Resp B/P (MAP) Pulse Ox O2 Delivery O2 Flow Rate FiO2 08/25/17 21:51 97.3 99 16 103/65 97 Room Air vitals normal Sp02 EP Interpretation: reviewed, normal General Appearance: well appearing, no apparent distress, alert Head: normocephalic, atraumatic Eyes: bilateral eye PERRL, bilateral eye EOMI ENT: hearing grossly normal, normal pharynx Neck: full range of motion, supple, no meningismus Respiratory: chest non-tender, lungs clear, normal breath sounds Cardiovascular #1: regular rate, rhythm, no murmur Gastrointestinal: normal bowel sounds, non tender, no mass, no organomegaly, no bruit, non-distended Musculoskeletal: back normal, gait/station normal, normal range of motion, other - Right axilla: There are for distinct indurated area. Each measure from 2 mm to 1 cm. Neurologic: alert, oriented x3 Psychiatric: mood/affect normal Skin: warm/dry Procedures Incision and Drainage Incision and Drainage : Consent: Verbal Site: A right axilla Blade Size: 11 I & D Procedure: betadine prep, sterile drapes applied Wound Location: axilla Anesthesia: 1% Lidocaine Volume Anesthetic (ccs): 3 Patient Tolerated: Well Complications: None Progress Area clean with chlorhexidine. Local anesthetic 1% lidocaine without epinephrine. I made a small incision over each abscess. There was scant amount of pus expressed. Patient tolerated procedure without a problem. Medical Decision Making Diagnostic Impression: Primary Impression: Abscess of axilla, right ER Course Present with superficial abscess of the axilla. We'll continue with antibiotics. He felt better now. Last Vital Signs Date Time Temp Pulse Resp B/P (MAP) Pulse Ox O2 Delivery O2 Flow Rate FiO2 08/25/17 21:51 97.3 99 16 103/65 97 Room Air Status: improved Disposition: HOME, SELF-CARE Condition: Stable Scripts Mupirocin* (MUPIROCIN*) 22 Gm Oint...g. 1 APPLIC TOPIC THREE TIMES A DAY, #22 GM Prov: LUCIEN CHAUDHRY M.D. 08/25/17 Additional Instructions: Continue with your antibiotics. Use the new antibiotic ointment. Followup your DrJeferson in 7 days for recheck. Return if worse. LUCIEN CHAUDHRY M.D. Aug 25, 2017 22:49
[2017-08-25 23:41] VITALS: BP 103/65
== END 2017-08-25 23:54 | disposition home or self-care (01) ==
LOC: EMR 22:10
DX: L02.411 Cutaneous abscess of right axilla (principal)
CPT/HCPCS: 10060; 99284

== ENCOUNTER 2017-09-01 12:52 | Emergency (ER) | payer MEDICARE, MEDICAID ==
[~2017-09-01] VITALS: Ht 188 cm; Wt 83.9 kg
[~2017-09-01 12:52] MED LIST changes: +MUPIROCIN22 GM TOPIC
--- NOTE | 2017-09-01 13:25 | Emergency Room Report ---
History of Present Illness General Chief Complaint: Skin Rash/Abscess Source: Patient Present Illness HPI 52-year-old male presents to ER for a wound check of skin abscess drained one week ago. Patient states he complete his course of antibiotics and wants to know if he needs more antibiotics Patient states he is using topical antibiotic cream provided in ER. Patient reports relief of pain and erythema at site of drainage. Patient states he has an appointment with his primary care provider on September 05 2017 for followup of symptoms. Patient denies fever, chest pain, nausea, vomiting, SOB. Allergies: Coded Allergies: No Known Allergies (Unverified , 03/27/14) Patient History Past Medical History: see triage record Reviewed Nursing Documentation: PMH: Agreed, PSxH: Agreed Nursing Documentation-PMH Past Medical History: No History, Except For Hx Diabetes: No Hx Cerebrovascular Accident: No - MEMORY LOSS Hx Seizures: Yes Review of Systems All Other Systems: negative except mentioned in HPI Physical Exam Vital Signs Date Time Temp Pulse Resp B/P (MAP) Pulse Ox O2 Delivery O2 Flow Rate FiO2 09/01/17 13:07 97.9 76 17 115/77 98 Room Air Sp02 EP Interpretation: reviewed, normal General Appearance: no apparent distress, alert, GCS 15, non-toxic Head: normocephalic, atraumatic Eyes: bilateral eye normal inspection, bilateral eye PERRL ENT: hearing grossly normal, normal pharynx, no angioedema, normal voice Neck: full range of motion Respiratory: chest non-tender, lungs clear, normal breath sounds, speaking full sentences Cardiovascular #1: regular rate, rhythm, no edema Musculoskeletal: back normal, gait/station normal, normal range of motion, non- tender Neurologic: alert, oriented x3, responsive, motor strength/tone normal, sensory intact, speech normal Psychiatric: mood/affect normal Skin: normal color, no rash, warm/dry, palpation normal, other - right axilla: <1cm hypertrophic scars x3, wounds closed, no erythema, no edmea, no TTP, sensation intact, no signs of infection Medical Decision Making PA Attestation Dr. Garcia is my supervising Physician whom patient management has been discussed with. Diagnostic Impression: Primary Impression: Wound check, abscess ER Course Pt. presents to the ED requesting wound check of drained abscess. Ddx considered but are not limited to cellulitis, abscess, carbuncle, folliculitis. Vital signs: are WNL, pt. is afebrile ORDERS: none required at this time. ED INTERVENTIONS: none required at this time. Wound has no signs of infection., no erythema, edema, TTP, sensation is intact to light touch. Patient is resting comfortably, in no acute distress, non-toxic appearing. DISCHARGE: Patient decline need for pain medication at this time. Patient instructed to continue with topical antibiotic cream per initial ER instructions. At this time pt. is stable for d/c to home. Will provide printed patient care instructions and any necessary prescriptions. Care plan and follow up instructions have been discussed with the patient prior to discharge. Patient instructed to follow-up with primary care provider at scheduled appointment for further treatment and referral. Patient questions asked and answered. ER precautions given. Patient instructed to return to ER immediately for any new or worsening of symptoms including but not limited to fever, worsening of pain symptoms. Last Vital Signs Date Time Temp Pulse Resp B/P (MAP) Pulse Ox O2 Delivery O2 Flow Rate FiO2 09/01/17 13:07 97.9 76 17 115/77 98 Room Air Disposition: HOME, SELF-CARE Condition: Stable Patient Instructions: Wound Infection Additional Instructions: Followup with primary care provider at scheduled appointment on September 05. At that time discuss further referral to dermatology and surgeon as needed for recurring abscess. Take medications as directed. Patient questions asked and answered. ER precautions given, patient instructed to return to ER immediately for any new or worsening of symptoms. Ervin Altamirano Sep 01, 2017 13:25
[2017-09-01 13:29] VITALS: BP 115/77
[2017-09-01 13:30] VITALS: BP 115/77
== END 2017-09-01 13:30 | disposition home or self-care (01) ==
LOC: EMR 13:23
DX: Z48.00 Encounter for change or removal of nonsurgical wound dressing (principal); L02.411 Cutaneous abscess of right axilla
CPT/HCPCS: 99281

== ENCOUNTER 2017-09-03 15:51 | Emergency (ER) | payer MEDICARE, MEDICAID ==
[~2017-09-03] VITALS: Ht 188 cm; Wt 83.9 kg
[2017-09-03] MEDS ORDERED: INDOMETHACIN50 MG PO (16:18)
[2017-09-03] MEDS ORDERED: DEPAKENE250 MG ORAL (16:18)
--- NOTE | 2017-09-03 16:32 | Emergency Room Report ---
History of Present Illness General Chief Complaint: Pain Source: Patient Present Illness HPI 52 yo male patient presents to ER complaining of gout attack in left wrist. Patient reports history of gout treated by primary care; states he has not been to see primary care provider for gout tx recently. Patient states symptoms began 2 days ago following eating a pastrami sandwich; patient reports pain symptoms have been increasing since that time. Patient reports he has not been taking his gout medication for several months. Patient reports pain and swelling of left wrist; states gout symptoms have affected this wrist before. Patient denies history of trauma to wrist. Patient denies fever, chest pain, SOB. Allergies: Coded Allergies: No Known Allergies (Unverified , 03/27/14) Patient History Past Medical History: see triage record Reviewed Nursing Documentation: PMH: Agreed, PSxH: Agreed Nursing Documentation-PMH Hx Diabetes: No Hx Cerebrovascular Accident: No - MEMORY LOSS Hx Seizures: Yes Review of Systems All Other Systems: negative except mentioned in HPI Physical Exam Vital Signs Date Time Temp Pulse Resp B/P (MAP) Pulse Ox O2 Delivery O2 Flow Rate FiO2 09/03/17 16:13 98.4 74 17 126/84 99 Room Air Sp02 EP Interpretation: reviewed, normal General Appearance: no apparent distress, alert, GCS 15, non-toxic Head: normocephalic, atraumatic Eyes: bilateral eye normal inspection, bilateral eye PERRL ENT: hearing grossly normal, normal pharynx, no angioedema, normal voice Neck: full range of motion, supple/symm/no masses Respiratory: chest non-tender, lungs clear, normal breath sounds, speaking full sentences Cardiovascular #1: regular rate, rhythm, no edema Cardiovascular #2: 2+ radial (R), 2+ radial (L) Musculoskeletal: digits/nails normal, gait/station normal, decreased range of motion - left wrist: secondary to pain, swelling - left wrist, dorsal aspect, tender - left wrist, dorsal aspect Neurologic: alert, oriented x3, responsive, motor strength/tone normal, sensory intact, speech normal Psychiatric: mood/affect normal Skin: normal color, no rash, warm/dry, well hydrated, other - left wrist: no gouty tophi, no warmth to touch Medical Decision Making PA Attestation Dr. Fagan is my supervising Physician whom patient management has been discussed with. Diagnostic Impression: Primary Impression: Gout attack ER Course Pt. presents to the ED c/o left wrist pain. Ddx considered but are not limited to gout, strain, sprain, contusion, cellulitis. Vital signs: are WNL, pt. is afebrile ORDERS: An X-ray of the left wrist was ordered, results show no acute disease, per the preliminary reading ED INTERVENTIONS: -Indomethacin provided in ER for pain. Patient reports symptoms improved following administration of pain medication. DISCHARGE: -Rx provided for Ibuprofen for pain symptoms. -Rx provided for Colchicine. Provided wrist splint to patient. At this time pt. is stable for d/c to home. Will provide printed patient care instructions, and any necessary prescriptions. Patient instructed to follow with primary care provider in 3 - 5 days and to discuss further gout and wrist pain treatment. Pain understands and agrees to treatment plan. Care plan and follow up instructions have been discussed with the patient prior to discharge. Take medications as directed. Patient questions asked and answered. ER precautions given, patient instructed to return to ER immediately for any new or worsening of symptoms. Other X-Ray Diagnostic Results Other X-Ray Diagnostic Results : X-Ray ordered: left wrist # of Views/Limited Vs Complete: 2 View Indication: Pain EP Interpretation: Yes PA Xray: Interpretation reviewed, by supervising MD, and agrees with findings. Interpretation: no dislocation, no soft tissue swelling, no fractures PA Scribe Text Santos Altamirano PA-C Last Vital Signs Date Time Temp Pulse Resp B/P (MAP) Pulse Ox O2 Delivery O2 Flow Rate FiO2 09/03/17 16:13 98.4 74 17 126/84 99 Room Air Disposition: HOME, SELF-CARE Condition: Stable Scripts Colchicine (COLCRYS) 0.6 Mg Tablet 0.6 MG PO BID for 7 Days, #14 TAB Prov: Ervin Altamirano 09/03/17 Indomethacin (Indomethacin) 50 Mg Capsule 25 MG ORAL Q8H for 7 Days, #21 CAP 0 Refills Prov: Ervin Altamirano 09/03/17 Patient Instructions: Gout, [id number] Additional Instructions: Followup with primary care provider in 3 -5 days. Take medications as directed. Patient questions asked and answered. ER precautions given, patient instructed to return to ER immediately for any new or worsening of symptoms. Ervin Altamirano Sep 03, 2017 16:32
[2017-09-03] MEDS ORDERED: COLCRYS0.6 M1 PO (16:41)
[2017-09-03] MEDS ORDERED: INDOCIN25 MG ORAL (16:41)
[2017-09-03] MEDS ORDERED: Indomethacin 75 MG CAPSULE.ER ORAL ONE (18:00)
[2017-09-03 20:26] VITALS: BP 130/83
--- NOTE | 2017-09-04 11:31 | Diagnostic Imaging Report ---
Clinical Indication:Pain Technique: 3 views of the left wrist Comparison: None Findings: There is a large circular defects in the triquetrum with disruption of the lateral cortex. A small ossific density is seen immediately adjacent to it. Small lucency are seen within the lunate and scaphoid. No definite acute fractures. Impression: No acute bony trauma Large osseous defect in the triquetrum. Review of the electronic medical record indicates patient has a history of gout. 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
== END 2017-09-03 18:30 | disposition home or self-care (01) ==
LOC: EMR 16:30
DX: M10.9 Gout, unspecified (principal)
CPT/HCPCS: 99284

== ENCOUNTER 2018-01-29 16:22 | Emergency (ER) | payer MEDICARE, MEDICAID ==
[~2018-01-29] VITALS: Ht 188 cm; Wt 86.2 kg
[~2018-01-29 16:22] MED LIST changes: +DEPAKENE250 MG ORAL
[2018-01-29] MEDS ORDERED: Indomethacin 25mg cap ORAL ONE (16:45)
[2018-01-29 16:49] VITALS: BP 111/73
--- NOTE | 2018-01-29 16:52 | Emergency Room Report ---
History of Present Illness General Chief Complaint: Upper Extremity Injury Source: Patient (Ervin Altamirano) Present Illness HPI 53-year-old male patient presents to ER complaining of left hand pain 5 days. Reports that he had a seizure 5 days ago that was observed, states that he he believes he fell on his left hand and injured it at that time. Denies having any imaging done at that time. Denies going to the hospital following seizure. Reports no seizure since that time. Reports taking valproic acid. Denies headache, fever, chest pain, shortness of breath, neck pain, abdominal pain. Reports left hand pain worsening since that time. Reports swelling in left hand. Reports history of gout, states that he has history of symptoms in the hand and wrist, states has not taken medications. Reports he is right-hand dominant. reports history of diabetes and smoking. Requesting refill of gout medications. (Ervin Altamirano) Allergies: Coded Allergies: No Known Allergies (Unverified , 03/27/14) Patient History Past Medical History: see triage record Reviewed Nursing Documentation: PMH: Agreed; PSxH: Agreed (Ervin Altamirano) Nursing Documentation-PMH Past Medical History: No History, Except For Hx Diabetes: No Hx Cerebrovascular Accident: No - MEMORY LOSS Hx Seizures: Yes (Ervin Altamirano) Review of Systems All Other Systems: negative except mentioned in HPI (Ervin Altamirano) Physical Exam Vital Signs Date Time Temp Pulse Resp B/P (MAP) Pulse Ox O2 Delivery O2 Flow Rate FiO2 18 16:33 98.6 91 18 111/73 95 Room Air 98.6 Sp02 EP Interpretation: reviewed, normal General Appearance: well appearing, no apparent distress, alert, GCS 15, non- toxic Head: normocephalic, atraumatic, other - negative [place]jo sign, negative raccoon eyes, no skull depression Eyes: bilateral eye normal inspection, bilateral eye PERRL, bilateral eye EOMI ENT: hearing grossly normal, normal pharynx, no angioedema, normal voice, TMs + canals normal, uvula midline, moist mucus membranes Neck: full range of motion, no bony tend Respiratory: lungs clear, normal breath sounds, no rhonchi, no respiratory distress, no accessory muscle use, no wheezing, speaking full sentences Cardiovascular #1: regular rate, rhythm, no edema Cardiovascular #2: 2+ radial (R), 2+ radial (L) Musculoskeletal: back normal, digits/nails normal, gait/station normal, decreased range of motion, swelling, other - erythema and edema of the dorsum of left hand, tender Neurologic: alert, oriented x3, responsive, loss prevention operations manager III-XII nml as tested, motor strength/tone normal, sensory intact, cerebellar normal, normal gait, speech normal Psychiatric: mood/affect normal Skin: no rash (Ervin Altamirano) Medical Decision Making PA Attestation Dr. Bella is my supervising Physician whom patient management has been discussed with. (Ervin Altamirano) Diagnostic Impression: Primary Impression: Left hand pain Additional Impression: Cellulitis ER Course Pt. presents to the ED c/o left hand pain.. Ddx considered but are not limited to fracture, sprain, strain, contusion, dislocation. No fever, nontoxic appearing, low suspicion for septic joint. no fusiform swelling of digits, no tenderness to palpation along the flexor tendons, low suspicion for flexor tenosynovitis. Vital signs: are WNL, pt. is afebrile Ordered X-ray and pain medication. ER COURSE Provided with pain medication. An X-ray of the left hand no acute fracture, soft tissue swelling on dorsum of hand, degenerative changes noted, cystic changes about scaphoid and lunate per the official reading. An X-ray of the left wrist no acute fracture, degenerative changes per preliminary reading. No pallor, pulselessness, paresthesias, low suspicion for compartment syndrome. Erythema and edema on dorsum of left hand, warmth to touch, likely cellulitis, will admit patient. ordered basic labs and IV antibiotics. Patient seen and evaluated by Dr. Bella, agrees with treatment plan. patient okay with admission at this time. Informed by nurse the patient no longer wants to be admitted, wants to be discharged home immediately. Went to speak with patient, patient became angry and started yelling at myself and staff. Patient states did not want labs drawn and admission. Explained risks of leaving to patient including worsening of infection, possible loss of use of hand, sepsis, and . patient reports understanding and states he does not believe that is going to happen to him. Does not want to be admitted, wants to leave. patient elected to leave AMA. Patient did not sign AMA before leaving. Will provide patient with antibiotics and gout medication. ER precautions given. - Please note that this Emergency Department Report was dictated using [employer] feeder [employer]om[employer] technology software, occasionally this can lead to erroneous entry secondary to interpretation by the dictation equipment. (Ervin Altamirano) ER Course Upon my evaluation, patient has left hand dorsal compartment cellulitis with significant edema erythema warmth and tenderness, do not suspect any single joint involvement, do not suspect any flexor component to this infection, he is able to range elbow fully, wrist partially, all digits partially, and it seems that he likely developed some sort of inoculation of the dorsal compartment of his hand when he had a seizure, although there is no obvious laceration or abrasion visible currently. (BROOKS BELLA M.D) Other X-Ray Diagnostic Results Other X-Ray Diagnostic Results #1: X-Ray ordered: left wrist # of Views/Limited Vs Complete: 3 View Indication: Swelling EP Interpretation: Yes PA Xray: Interpretation reviewed, by supervising MD, and agrees with findings. Interpretation: no dislocation, no soft tissue swelling, no fractures PA Scribe Text Santos Altamirano PA-C Other X-Ray Diagnostic Results #2: X-Ray ordered: left hand # of Views/Limited Vs Complete: 3 View Indication: Swelling EP Interpretation: Yes PA Xray: Interpretation reviewed, by supervising MD, and agrees with findings. Interpretation: no dislocation, no fractures, other - soft tissue swelling, degenerative changes Impression: Other - soft tissue swelling, degenerative changes PA Scribe Text Santos Altamirano PA-C (Ervin Altamirano) Last Vital Signs Date Time Temp Pulse Resp B/P (MAP) Pulse Ox O2 Delivery O2 Flow Rate FiO2 01/29/18 16:33 98.6 91 18 111/73 95 Room Air 98.6 (Ervin Altamirano) Disposition: ELOPED Condition: Serious Scripts Trimethoprim/Sulfamethoxazole 160/800* (BACTRIM DS TABLET*) 1 Each Tablet 1 TAB ORAL TWICE A DAY for 7 Days, #14 TAB Prov: Ervin Altamirano 01/29/18 Cephalexin* (KEFLEX*) 500 Mg Capsule 500 MG ORAL EVERY 12 HOURS, #14 CAP 0 Refills Prov: Ervin Altamirano 01/29/18 Colchicine (Colchicine) 0.6 Mg Capsule 0.6 MG PO BID, #30 CAP Prov: Ervin Altamirano 01/29/18 Indomethacin (INDOMETHACIN) 50 Mg Capsule 50 MG PO BID, #30 CAP Prov: Ervin Altamirano 01/29/18 Patient Instructions: Cellulitis, [id number], Gout, Wrist Pain, [id number] Additional Instructions: Patient instructed to follow up with primary care provider and discuss further referral at that time. Patient instructed on RICE method: rest, ice, compression, elevation. Patient instructed to NWB. Adhere to gout diet, continue to take gout medication as previously instructed. Take medications as directed. Patient questions asked and answered. ER precautions given, patient instructed to return to ER immediately for any new or worsening of symptoms. Ervin Altamirano Jan 29, 2018 16:52 BROOKS BELLA M.D Jan 29, 2018 19:13
[2018-01-29] MEDS ORDERED: INDOMETHACIN50 MG PO (18:44)
[2018-01-29] MEDS ORDERED: COLCHICINE0.6 M1 PO (18:44)
[2018-01-29] MEDS ORDERED: Morphine Sulfate 4mg/ml Inj IVP ONE (19:15)
[2018-01-29] MEDS ORDERED: Vancomycin 1500mg IVPB ONE (19:30)
[2018-01-29] MEDS ORDERED: LORazepam 1mg tab ORAL ONE (19:30)
[2018-01-29] MEDS ORDERED: CEPHALEXIN500 MG ORAL (19:31)
[2018-01-29] MEDS ORDERED: BACTRIM DS TAB1 EAC1 ORAL (19:31)
[2018-01-29 19:40] VITALS: BP 111/73
--- NOTE | 2018-01-30 11:29 | Diagnostic Imaging Report ---
Indication: Pain left wrist pain Findings: 3 views of the left wrist were obtained. Cystic changes are noted within the first row carpal bones. There is narrowing and osteophyte formation involving the radial carpal joint. Generalized soft tissue swelling is present. There is a small well-corticated osseous fragment adjacent to the ulnar styloid probably indicative of an old fracture. IMPRESSION: Soft tissue swelling nonspecific. No acute fracture appreciated. Ulnar styloid ossicle is probably old fracture. Moderate arthrosis of the wrist as described above.
--- NOTE | 2018-01-30 11:30 | Diagnostic Imaging Report ---
Indication: pain. Left hand pain Findings: 3 views of the left hand were obtained. No acute fractures appreciated. There is generalized soft tissue swelling of the hand and wrist which is nonspecific. Bones are osteopenic. Fairly extensive cystic changes are noted throughout the carpal bones. Consider CPPD or other inflammatory arthropathy. IMPRESSION: No acute injury identified. Multiple cysts within the carpal bones. Consider CPPD or other inflammatory arthropathy versus osteoarthrosis.
== END 2018-01-29 19:45 | disposition other institution (70) ==
LOC: EMR 16:53 → CANBEDREQ 19:44 → EMR 19:45
DX: L03.114 Cellulitis of left upper limb (principal); M85.642 Other cyst of bone, left hand
CPT/HCPCS: 99284

== ENCOUNTER 2018-01-31 09:23 | Emergency (ER) | payer MEDICARE, MEDICAID ==
[~2018-01-31] VITALS: Ht 188 cm; Wt 86.2 kg
[~2018-01-31 09:23] MED LIST changes: +CEPHALEXIN500 MG ORAL
--- NOTE | 2018-01-31 11:25 | Diagnostic Imaging Report ---
EXAM: XR Left Wrist Complete, 3 or More Views CLINICAL HISTORY: PAIN TECHNIQUE: Frontal, lateral and oblique views of the left wrist. COMPARISON: X-rays of the left hand dated 01/31/18. FINDINGS: Bones/joints: Age-indeterminate minimally displaced avulsion fracture of the ulnar styloid process. Dorsal cortical irregularity of the carpal bones on lateral projection. Mild degenerative joint space narrowing at the radiocarpal joint. Soft tissues: Soft tissue swelling around the wrist and dorsal soft tissue swelling of the hand. No radiopaque foreign body. IMPRESSION: 1. Age-indeterminate minimally displaced avulsion fracture of the ulnar styloid process. 2. Dorsal cortical irregularity of the carpal bones on lateral projection. This is nonspecific but cannot exclude a subtle triquetral fracture. Recommend correlation with point tenderness. 3. Soft tissue swelling around the wrist and dorsal soft tissue swelling of the hand.
--- NOTE | 2018-01-31 11:28 | Diagnostic Imaging Report ---
EXAM: XR Left Hand Complete, 3 or More Views CLINICAL HISTORY: PAIN TECHNIQUE: Frontal, lateral and oblique views of the left hand. COMPARISON: Left wrist x-ray dated 01/31/18 and 09/03/17. Left hand x-ray dated 01/29/18. FINDINGS: Bones/joints: Small avulsion fracture fragment of the ulnar styloid process, not significant changed compared to 09/03/17. Dorsal irregularity of the carpal bones on lateral projection, not significantly changed compared to 09/03/17, possibly related to remote triquetral fracture. Mild degenerative joint space narrowing in the interphalangeal and radiocarpal joints. Soft tissues: Soft tissue swelling along the dorsal aspect of the hand. No radiodense foreign bodies. No soft tissue gas lucencies. IMPRESSION: 1. Small avulsion fracture fragment of the ulnar styloid process, not significant changed compared to 09/03/17. 2. Dorsal irregularity of the carpal bones on lateral projection, not significantly changed compared to 09/03/17, possibly related to remote triquetral fracture. 3. Soft tissue swelling along the dorsal aspect of the hand.
[2018-01-31] MEDS ORDERED: NORCO 5-325 TA1 EACH ORAL (12:06)
[2018-01-31 12:26] VITALS: BP 164/82
--- NOTE | 2018-01-31 12:28 | Emergency Room Report ---
History of Present Illness General Chief Complaint: Pain Source: Patient, Medical Record Present Illness HPI Patient presents to the ER today complaining of left hand pain. Patient has a history of seizures. He states that he woke up with left hand pain after seizure he thinks he might have injured it during the seizure. He was actually here in the emergency department about a day or so ago at that time refused x- rays treatment. But now he is back requesting x-rays. He denies any chest pain shortness breath. Patient was offered pain medication but he declined. No other modifying factors. No other associated signs and symptoms. No other complaints were noted. Allergies: Coded Allergies: No Known Allergies (Unverified , 03/27/14) Patient History Past Medical History: seizures Past Surgical History: none Pertinent Family History: none Social History: Denies: smoking, alcohol use, drug use Reviewed Nursing Documentation: PMH: Agreed; PSxH: Agreed Nursing Documentation-PMH Past Medical History: No History, Except For Hx Diabetes: No Hx Cerebrovascular Accident: No - MEMORY LOSS Hx Seizures: Yes Review of Systems All Other Systems: negative except mentioned in HPI Physical Exam Vital Signs Date Time Temp Pulse Resp B/P (MAP) Pulse Ox O2 Delivery O2 Flow Rate FiO2 01/31/18 09:37 98.2 94 18 122/82 95 Room Air 98.2 Sp02 EP Interpretation: reviewed, normal General Appearance: normal inspection, alert, other - Mild discomfort due to pain in left wrist. Head: atraumatic Eyes: bilateral eye normal inspection ENT: normal ENT inspection, hearing grossly normal, normal voice Neck: normal inspection, full range of motion, supple, no bony tend Respiratory: normal inspection, lungs clear, normal breath sounds, no respiratory distress, no retraction, no wheezing Cardiovascular #1: regular rate, rhythm, no edema Gastrointestinal: normal inspection, normal bowel sounds, non tender, soft, no guarding, no hernia Genitourinary: no CVA tenderness Musculoskeletal: decreased range of motion - Due to pain in the left wrist, swelling - Left wrist and hand. Neurologic: normal inspection, alert, responsive, speech normal Psychiatric: normal inspection, judgement/insight normal, mood/affect normal Skin: normal inspection, normal color, no rash Procedures Splinting Splinting : Consent: Verbal Location: Left wrist Pre-Made Type: velcro Splint: thumb spica Pre-Proc Neuro Vasc Exam: normal Post-Proc Neuro Vasc Exam: normal Patient Tolerated: Well Complications: None Medical Decision Making Diagnostic Impression: Primary Impression: Wrist fracture, left ER Course Patient presents emergency department today complaining of wrist pain. Differential considered since include fracture dislocation versus strain. Given patient's presentation I felt x-rays are indicated. Patient's x-rays showed avulsion fracture of the ulnar styloid. This is unknown duration. There is also a questionable triquetral fracture. This however was unchanged from before. Given patient's presentation and swelling however I felt the patient could have reinjured his wrist. Patient was placed in a thumb spica advised follow with orthopedics.Patient is advised to follow up with primary doctor in 2-3 days and return the emergency room for any worsening symptoms and as needed. Other X-Ray Diagnostic Results Other X-Ray Diagnostic Results : X-Ray ordered: Left wrist and left hand x-ray # of Views/Limited Vs Complete: 3 View Impression: Other - Questionable ulnar fracture per radiology Last Vital Signs Date Time Temp Pulse Resp B/P (MAP) Pulse Ox O2 Delivery O2 Flow Rate FiO2 01/31/18 09:37 98.2 94 18 122/82 95 Room Air 98.2 Status: improved Disposition: HOME, SELF-CARE Condition: Stable Scripts Hydrocodone Bit/Acetaminophen 5-325* (NORCO 5-325*) 1 Each Tablet 1 TAB ORAL Q6H PRN for For Pain, #20 TAB 0 Refills Prov: Sami Robertson MD 01/31/18 Patient Instructions: Wrist Splint, Wrist Fracture Sami Robertson MD Jan 31, 2018 12:28
== END 2018-01-31 12:26 | disposition home or self-care (01) ==
LOC: EMR 09:59
DX: S52.612A Displaced fracture of left ulna styloid process, initial encounter for closed fracture (principal); X58.XXXA Exposure to other specified factors, initial encounter; Y92.9 Unspecified place or not applicable; Z86.69 Personal history of other diseases of the nervous system and sense organs
CPT/HCPCS: 29280; 99284

== ENCOUNTER 2018-03-24 | Emergency (ER) | payer MEDICARE, MEDICAID ==
[~2018-03-24] VITALS: Ht 188 cm; Wt 83.9 kg
[2018-03-24 00:10] VITALS: BP 108/70
[2018-03-24] MEDS ORDERED: BACTRIM DS TAB1 EAC1 ORAL (00:37)
[2018-03-24] MEDS ORDERED: INDOMETHACIN50 MG PO (00:37)
--- NOTE | 2018-03-24 00:38 | Emergency Room Report ---
History of Present Illness General Chief Complaint: Pain Source: Patient, Caregiver Present Illness HPI This a 53-year-old male with a history of seizure and gout. He's been here multiple time for left wrist/hand pain. He presents with chief complaint of left hand/wrist pain for about a week. He thinks his gout is acting up. No trauma. Pain is 10 out of 10. Worse with movement. Worse with palpation. Denies any drug use. No fever chills but no trauma. No recent seizure. Allergies: Coded Allergies: No Known Allergies (Unverified , 03/27/14) Patient History Past Medical History: see triage record, old chart reviewed, seizures Past Surgical History: other Pertinent Family History: none Social History: Denies: smoking Immunizations: other Reviewed Nursing Documentation: PMH: Agreed; PSxH: Agreed Nursing Documentation-PMH Hx Diabetes: No Hx Cerebrovascular Accident: No - MEMORY LOSS Hx Seizures: Yes Review of Systems Eye: Denies: eye pain, blurred vision ENT: Denies: ear pain, nose congestion, throat swelling Respiratory: Denies: cough, shortness of breath Cardiovascular: Denies: chest pain, palpitations Gastrointestinal: Denies: abdominal pain, diarrhea, nausea, vomiting Musculoskeletal: Reports: joint pain; Denies: back pain Skin: Denies: rash Neurological: Denies: headache, numbness Endocrine: Denies: increased thirst, increased urine Hematologic/Lymphatic: Denies: easy bruising All Other Systems: negative except mentioned in HPI Physical Exam Vital Signs Date Time Temp Pulse Resp B/P (MAP) Pulse Ox O2 Delivery O2 Flow Rate FiO2 03/24/18 00:09 98.3 78 16 101/73 98 Room Air 98.2 vitals normal Sp02 EP Interpretation: reviewed, normal General Appearance: well appearing, no apparent distress, alert Head: normocephalic, atraumatic Eyes: bilateral eye PERRL, bilateral eye EOMI ENT: hearing grossly normal, normal pharynx Neck: full range of motion, supple, no meningismus Respiratory: chest non-tender, lungs clear, normal breath sounds Cardiovascular #1: regular rate, rhythm, no murmur Gastrointestinal: normal bowel sounds, non tender, no mass, no organomegaly, no bruit, non-distended Musculoskeletal: back normal, gait/station normal, normal range of motion, other - Left hand: There is tenderness to the base of the thumb and radial aspect of the wrist. Some mild warmth. Decreased range of motion secondary to pain. Pulses normal. Sensation normal. Psychiatric: mood/affect normal Skin: warm/dry Procedures Splinting Splinting : Consent: Verbal Location: left wrist Pre-Made Type: velcro Splint: volar Pre-Proc Neuro Vasc Exam: normal Post-Proc Neuro Vasc Exam: normal Patient Tolerated: Well Complications: None Medical Decision Making Diagnostic Impression: Primary Impression: Gout Qualified Codes: M10.9 - Gout, unspecified Additional Impression: Cellulitis of wrist ER Course Patient with left wrist injury. This is a chronic problem. This could be gout. Could also be some mild cellulitis. No evidence of any septic joint or abscess. We'll discharge home. Last Vital Signs Date Time Temp Pulse Resp B/P (MAP) Pulse Ox O2 Delivery O2 Flow Rate FiO2 03/24/18 00:09 98.3 78 16 101/73 98 Room Air 98.2 Status: unchanged Disposition: HOME, SELF-CARE Condition: Stable Scripts Trimethoprim/Sulfamethoxazole 160/800* (BACTRIM DS TABLET*) 1 Each Tablet 1 TAB ORAL Q12H, #14 TAB 0 Refills Prov: LUCIEN CHAUDHRY M.D. 03/24/18 Indomethacin (INDOMETHACIN) 50 Mg Capsule 50 MG PO TID, #30 CAP Prov: LUCIEN CHAUDHRY M.D. 03/24/18 Referrals: NOT CHOSEN IPA/,REFERRING (PCP) Additional Instructions: Elevate hand. Ice pack to the area. Follow-up with your doctor in 7 days for recheck. Return of worse. LUCIEN CHAUDHRY M.D. Mar 24, 2018 00:38
[2018-03-24] MEDS ORDERED: Bactrim-DS 1 tab ORAL ONE (00:45)
[2018-03-24 00:50] VITALS: BP 106/68
[2018-03-24 00:55] VITALS: BP 106/68
== END 2018-03-24 00:57 | disposition home or self-care (01) ==
LOC: EMR 00:27
DX: M10.032 Idiopathic gout, left wrist (principal); R41.3 Other amnesia
CPT/HCPCS: 99284

== ENCOUNTER 2018-07-25 17:27 | Emergency (ER) | payer MEDICAID, MEDICARE ==
[~2018-07-25] VITALS: Ht 188 cm; Wt 86.2 kg
[2018-07-25 17:38] VITALS: BP 125/82
--- NOTE | 2018-07-25 17:50 | Emergency Room Report ---
History of Present Illness General Chief Complaint: Seizure Source: Patient Present Illness HPI Patient presents with reports of seizure activity Reports that he has been out of his Depakote level for the past 5 days He takes 250 mg two, twice daily He reports that he had contusion to his right facial area Injury to the upper and lower lip which indicated to him that he did have a seizure Denies any chest pain at this time denies any focal weakness patient last had a seizure about 3 weeks ago Has had seizure activity and history for over the past 10 years Allergies: Coded Allergies: No Known Allergies (Unverified , 03/27/14) Patient History Past Medical History: see triage record Pertinent Family History: none Reviewed Nursing Documentation: PMH: Agreed; PSxH: Agreed Nursing Documentation-PMH Past Medical History: No History, Except For Hx Diabetes: No Hx Cerebrovascular Accident: No - MEMORY LOSS Hx Seizures: Yes Review of Systems All Other Systems: negative except mentioned in HPI Physical Exam Vital Signs Date Time Temp Pulse Resp B/P (MAP) Pulse Ox O2 Delivery O2 Flow Rate FiO2 07/25/18 17:34 98.4 66 18 127/88 96 Room Air Sp02 EP Interpretation: reviewed, normal General Appearance: well appearing, no apparent distress Head: normocephalic, other - Right-sided upper maxillary contusion Eyes: bilateral eye PERRL, bilateral eye EOMI ENT: hearing grossly normal, normal pharynx, TMs + canals normal, uvula midline , other - Mild abrasion to the left upper and inner aspect of the lips no obvious laceration Neck: full range of motion, supple, no meningismus, no bony tend Respiratory: lungs clear, normal breath sounds, no rhonchi, no respiratory distress, no retraction, no accessory muscle use Cardiovascular #1: normal peripheral pulses, regular rate, rhythm, no edema, no gallop, no JVD, no murmur Gastrointestinal: normal bowel sounds, non tender, soft, no mass, no organomegaly, non-distended, no guarding, no hernia, no pulsatile mass, no rebound Genitourinary: no CVA tenderness Musculoskeletal: normal inspection Neurologic: oriented x3, responsive, answering service telephone operator III-XII nml as tested, motor strength/ tone normal, sensory intact Psychiatric: mood/affect normal Skin: normal color, no rash, warm/dry, palpation normal Lymphatic: normal inspection, no adenopathy Medical Decision Making Diagnostic Impression: Primary Impression: Seizure disorder Additional Impression: Facial contusion ER Course Given the patient's history and presentation baseline blood work was initiated patient is awake alert and GCS 15 CT imaging was not required emergently Patient's Depakote level is low consistent with the patient's report of not being able to take it for the last 5 days patient was provided with oral medications here and prescription for home Labs Test 07/25/18 18:00 White Blood Count 5.9 K/UL (4.8-10.8) Red Blood Count 3.99 M/UL (4.70-6.10) Hemoglobin 11.5 G/DL (14.2-18.0) Hematocrit 35.8 % (42.0-52.0) Mean Corpuscular Volume 90 FL (80-99) Mean Corpuscular Hemoglobin 28.8 PG (27.0-31.0) Mean Corpuscular Hemoglobin Concent 32.1 G/DL (32.0-36.0) Red Cell Distribution Width 12.6 % (11.6-14.8) Platelet Count 304 K/UL (150-450) Mean Platelet Volume 4.4 FL (6.5-10.1) Neutrophils (%) (Auto) 53.9 % (45.0-75.0) Lymphocytes (%) (Auto) 34.7 % (20.0-45.0) Monocytes (%) (Auto) 6.3 % (1.0-10.0) Eosinophils (%) (Auto) 2.2 % (0.0-3.0) Basophils (%) (Auto) 2.9 % (0.0-2.0) Sodium Level 141 MMOL/L (136-145) Potassium Level 4.8 MMOL/L (3.5-5.1) Chloride Level 104 MMOL/L (98-107) Carbon Dioxide Level 27 MMOL/L (21-32) Anion Gap 10 mmol/L (5-15) Blood Urea Nitrogen 14 mg/dL (7-18) Creatinine 1.4 MG/DL (0.55-1.30) Estimat Glomerular Filtration Rate > 60 mL/min (>60) Glucose Level 100 MG/DL (74-106) Calcium Level 8.9 MG/DL (8.5-10.1) Valproic Acid (Depakene) Level < 3 MCG/ML (50-100) Rhythm Strip Diag. Results EP Interpretation: yes Rate: 66 Rhythm: NSR, no PVC's, no ectopy Last Vital Signs Date Time Temp Pulse Resp B/P (MAP) Pulse Ox O2 Delivery O2 Flow Rate FiO2 07/25/18 17:34 98.4 66 18 127/88 96 Room Air Status: improved Disposition: HOME, SELF-CARE Condition: Improved Scripts Mupirocin* (MUPIROCIN*) 22 Gm Oint...g. 1 APPLIC TOPIC THREE TIMES A DAY for 7 Days, GM Prov: Toya Garcia DO 07/25/18 Valproic Acid (VALPROIC ACID) 250 Mg Capsule 500 MG PO BID, #60 CAP Prov: Toya Garcia DO 07/25/18 Additional Instructions: Patient is provided with the discharge instructions notified to follow up with primary doctor in the next 2-3 days otherwise return to the er with any worsening symptoms. Please note that this report is being documented using [employer] technology. This can lead to erroneous entry secondary to incorrect interpretation by the dictating instrument. Toya Garcia DO Jul 25, 2018 17:50
[2018-07-25 18:16] LABS: BASOPHILS % (AUTO) 2.9 % (0.0-2.0); EOSINOPHILS % (AUTO) 2.2 % (0.0-3.0); HEMATOCRIT 35.8 % (42.0-52.0); HEMOGLOBIN 11.5 G/DL (14.2-18.0); LYMPHOCYTES % (AUTO) 34.7 % (20.0-45.0); MEAN CORPUSCULAR VOLUME 90 FL (80-99); MONOCYTES % (AUTO) 6.3 % (1.0-10.0); NEUTROPHILS % (AUTO) 53.9 % (45.0-75.0); PLATELET COUNT 304 K/UL (150-450); RED BLOOD COUNT 3.99 M/UL (4.70-6.10); RED CELL DISTRIBUTION WIDTH 12.6 % (11.6-14.8); WHITE BLOOD COUNT 5.9 K/UL (4.8-10.8)
[2018-07-25 18:28] LABS: ANION GAP 10 mmol/L (5-15); BLOOD UREA NITROGEN 14 mg/dL (7-18); CALCIUM 8.9 MG/DL (8.5-10.1); CARBON DIOXIDE 27 MMOL/L (21-32); CHLORIDE 104 MMOL/L (98-107); CREATININE 1.4 MG/DL (0.55-1.30); POTASSIUM 4.8 MMOL/L (3.5-5.1); SODIUM 141 MMOL/L (136-145)
[2018-07-25] MEDS ORDERED: Depakote 500mg tab ORAL ONE (18:45)
[2018-07-25] MEDS ORDERED: VALPROIC ACID250 MG PO (18:52)
[2018-07-25] MEDS ORDERED: MUPIROCIN22 GM TOPIC (19:08)
[2018-07-25 19:14] VITALS: BP 125/82
== END 2018-07-25 22:00 | disposition home or self-care (01) ==
LOC: EMR 21:30
DX: G40.909 Epilepsy, unspecified, not intractable, without status epilepticus (principal); S00.83XA Contusion of other part of head, initial encounter; S00.511A Abrasion of lip, initial encounter; X58.XXXA Exposure to other specified factors, initial encounter; Y92.9 Unspecified place or not applicable
CPT/HCPCS: 36415; 80048; 80164; 85025; 99284

== ENCOUNTER 2018-12-24 21:56 | Emergency (ER) | payer MEDICARE, OTHER ==
[~2018-12-24] VITALS: Ht 188 cm; Wt 83.9 kg
[~2018-12-24 21:56] MED LIST changes: +VALPROIC ACID250 MG PO
--- NOTE | 2018-12-24 22:05 | NUR ---
ED Nurse Note: Patient walked into ED c/o gout flare up on right hand that started 3 days ago patient reports 9/10 throbbing pain patent reports the pain first started on his right shoulder, moved to his elbow, and now it's on his hand. patient is alert awake x4 ambulatory breathing unlabored and even skin is warm to touch
[2018-12-24 22:18] VITALS: BP 164/92
--- NOTE | 2018-12-24 22:20 | Emergency Room Report ---
History of Present Illness General Chief Complaint: Pain Source: Patient Present Illness HPI Patient presents with complaints of gout flareup of his right hand Reports ongoing for the past 3 days He does not have any medications for that he has been taking his Depakote pills for his seizures Reports that his last flareup was over a year ago He has been doing well with diet control denies any fevers or chills Denies any headache denies any chest pain or shortness of breath Any discomfort fairly well localized to the hand itself where he has had previous flareup Allergies: Coded Allergies: No Known Allergies (Unverified , 03/27/14) Patient History Past Medical History: see triage record Pertinent Family History: none Reviewed Nursing Documentation: PMH: Agreed; PSxH: Agreed Nursing Documentation-PMH Past Medical History: No History, Except For Hx Diabetes: No Hx Cerebrovascular Accident: No - MEMORY LOSS Hx Seizures: Yes Review of Systems All Other Systems: negative except mentioned in HPI Physical Exam Vital Signs Date Time Temp Pulse Resp B/P (MAP) Pulse Ox O2 Delivery O2 Flow Rate FiO2 12/24/18 21:59 98.2 65 18 165/97 (119) 98 Room Air Sp02 EP Interpretation: reviewed, normal General Appearance: well appearing, no apparent distress Head: normocephalic, atraumatic Eyes: bilateral eye PERRL, bilateral eye EOMI ENT: hearing grossly normal, normal pharynx, TMs + canals normal, uvula midline Neck: full range of motion, supple, no meningismus, no bony tend Respiratory: lungs clear, normal breath sounds, no rhonchi, no respiratory distress, no retraction, no accessory muscle use Cardiovascular #1: normal peripheral pulses, regular rate, rhythm, no edema, no gallop, no JVD, no murmur Gastrointestinal: normal bowel sounds, non tender, soft, no mass, no organomegaly, non-distended, no guarding, no hernia, no pulsatile mass, no rebound Genitourinary: no CVA tenderness Musculoskeletal: swelling - Right hand fairly diffuse Neurologic: oriented x3, responsive, clinical outcomes manager III-XII nml as tested, motor strength/ tone normal, sensory intact Psychiatric: mood/affect normal Skin: other - As above Lymphatic: normal inspection, no adenopathy Medical Decision Making Diagnostic Impression: Primary Impression: Gout attack ER Course Multiple differentials including but not limited to septic joint, infectious pathology, occult fracture, gout entertained patient has fairly classic findings of gouty arthritis flare he has had previous discomfort in similar location Is treated regarding this and will have initial conservative outpatient trial Last Vital Signs Date Time Temp Pulse Resp B/P (MAP) Pulse Ox O2 Delivery O2 Flow Rate FiO2 12/24/18 21:59 98.2 65 18 165/97 (119) 98 Room Air Status: improved Disposition: HOME, SELF-CARE Condition: Improved Scripts Indomethacin (INDOMETHACIN) 50 Mg Capsule 50 MG PO Q12HR, #20 CAP Prov: Toya Garcia DO 12/24/18 Additional Instructions: Patient is provided with the discharge instructions notified to follow up with primary doctor in the next 2-3 days otherwise return to the er with any worsening symptoms. Please note that this report is being documented using [employer] technology. This can lead to erroneous entry secondary to incorrect interpretation by the dictating instrument. Toya Garcia DO December 24, 2018 22:20
[2018-12-24] MEDS ORDERED: INDOMETHACIN50 MG PO (22:55)
--- NOTE | 2018-12-24 23:28 | NUR ---
ED Nurse Note: pt cleared to be d/c per ERMD, pt discharge and aftercare instruction provided w/ prescription sent electronically, education done via discussion and handout, pt advised to follow up with pcp to continue care or return to ed if changes in condition, pt verbalized understanding and agrees with plan, vss, ambulatory w/ steady gait, left w/ all belongings.
[2018-12-24 23:29] VITALS: BP 145/86
== END 2018-12-24 23:30 | disposition home or self-care (01) ==
LOC: EMR 22:26
DX: M10.9 Gout, unspecified (principal); G40.909 Epilepsy, unspecified, not intractable, without status epilepticus
CPT/HCPCS: 99282

== ENCOUNTER 2019-01-13 14:44 | Emergency (ER) | payer MEDICARE, OTHER ==
[~2019-01-13] VITALS: Ht 188 cm; Wt 82.6 kg
[2019-01-13 14:47] VITALS: BP 122/87
[2019-01-13] MEDS ORDERED: VALPROIC ACID250 MG PO ×2 (14:50→14:59)
--- NOTE | 2019-01-13 14:58 | Emergency Room Report ---
History of Present Illness General Chief Complaint: Medication Refill Source: Patient Present Illness HPI 53-year-old male with history of tonic-clonic seizures currently on valproic acid is here for a medication refill on valproic acid. Patient has the bottle in his hand has 2 pills left for 1 extra day she has appointment with primary care provider the next couple weeks as he is a and is hard for him to make an appointment. Patient denies any recent seizures, urinary or bowel incontinence. Denies chest pain, shortness of breath, palpitation, abdominal pain, nausea vomiting. Patient does not drink alcohol. Is sitting comfortably Allergies: Coded Allergies: No Known Allergies (Unverified , 03/27/14) Patient History Past Medical History: see triage record Past Surgical History: unable to obtain Pertinent Family History: none Immunizations: UTD Reviewed Nursing Documentation: PMH: Agreed; PSxH: Agreed Nursing Documentation-PMH Past Medical History: No History, Except For Hx Diabetes: No Hx Cerebrovascular Accident: No - MEMORY LOSS Hx Seizures: Yes Review of Systems All Other Systems: negative except mentioned in HPI Physical Exam Vital Signs Date Time Temp Pulse Resp B/P (MAP) Pulse Ox O2 Delivery O2 Flow Rate FiO2 01/13/19 14:47 97.9 70 17 122/87 (99) 98 Room Air Sp02 EP Interpretation: reviewed, normal General Appearance: normal inspection, well appearing, no apparent distress, alert, GCS 15 Head: normocephalic, atraumatic Eyes: bilateral eye normal inspection, bilateral eye PERRL ENT: normal ENT inspection, hearing grossly normal Neck: normal inspection, full range of motion, supple Respiratory: normal inspection, chest non-tender, lungs clear, normal breath sounds, no rhonchi, no wheezing Cardiovascular #1: normal inspection, normal peripheral pulses, no edema, no murmur Gastrointestinal: normal inspection, normal bowel sounds, non tender, soft Rectal: deferred Genitourinary: no CVA tenderness Musculoskeletal: normal inspection, back normal, digits/nails normal, gait/ station normal Neurologic: normal inspection, alert, oriented x3 Psychiatric: normal inspection, judgement/insight normal, memory normal Skin: normal inspection, normal color, no rash, warm/dry Lymphatic: normal inspection, no adenopathy Medical Decision Making PA Attestation All diagnoses and treatment plans were reviewed and discussed with my supervising physician Dr. Strong Diagnostic Impression: Primary Impression: Encounter for medication refill Additional Impression: Seizure disorder ER Course 53-year-old male with history of tonic-clonic seizures currently on valproic acid is here for a medication refill on valproic acid. Patient has the bottle in his hand has 2 pills left for 1 extra day she has appointment with primary care provider the next couple weeks as he is a and is hard for him to make an appointment. Patient denies any recent seizures, urinary or bowel incontinence. Denies chest pain, shortness of breath, palpitation, abdominal pain, nausea vomiting. Patient does not drink alcohol. Is sitting comfortably Ddx considered but are not limited to: Grand mal tonic-clonic seizure, bipolar disease, complicated seizures, uncontrolled seizures Vital signs: are WNL, pt. is afebrile H&PE are most consistent with: Controlled grand mal tonic-clonic seizure with medication refill ORDERS: Valproic acid ED INTERVENTIONS: None required at this time. DISCHARGE: At this time pt. is stable for d/c to home. Will provide printed patient care instructions, and any necessary prescriptions. Care plan and follow up instructions have been discussed with the patient prior to discharge. I advised the patient to follow-up with a primary care provider for further evaluation of seizure and also referral to neurologist Last Vital Signs Date Time Temp Pulse Resp B/P (MAP) Pulse Ox O2 Delivery O2 Flow Rate FiO2 01/13/19 14:47 97.9 70 17 122/87 98 Room Air Disposition: HOME, SELF-CARE Condition: Stable Scripts Valproic Acid (VALPROIC ACID) 250 Mg Capsule 250 MG PO BID for 30 Days, #60 CAP Prov: Mattie Ramos 01/13/19 Patient Instructions: Medicine Refill at the Emergency Department, Seizure, Adult, [id number] Additional Instructions: Follow-up with your primary care provider for further refills and evaluation of seizure also referral to neurologist Mattie Ramos Jan 13, 2019 14:58
--- NOTE | 2019-01-13 15:02 | NUR ---
ER DISCHARGE NOTE: Pt was seen for medication refill of valproate acid. Patient is cleared to be discharged per PA, pt is aox4, on room air, with stable vital signs. pt was given dc and prescription instructions, pt was able to verbalize understanding, pt id band removed. pt is able to ambulate with steady gait. pt took all belongings.
== END 2019-01-13 15:15 | disposition home or self-care (01) ==
LOC: EMR 15:07
DX: G40.909 Epilepsy, unspecified, not intractable, without status epilepticus (principal); Z76.0 Encounter for issue of repeat prescription
CPT/HCPCS: 99282

== ENCOUNTER 2019-03-16 19:57 | Emergency (ER) | payer MEDICARE, OTHER ==
[~2019-03-16] VITALS: Ht 188 cm; Wt 83.9 kg
--- NOTE | 2019-03-16 20:32 | Emergency Room Report ---
History of Present Illness General Chief Complaint: Wound Recheck/Suture Removal Source: Patient Present Illness HPI 54-year-old male with history of tonic-clonic seizures currently controlled with valproic acid here requesting suture removal from his left side of forehead. Patient reports that the sutures were placed in by a different facility 8 days ago. Patient denies pain dizziness. Denies fever and chills, pus drainage from the site of sutures. Is in no apparent discomfort. Sitting comfortably and denies pain, and other associated symptoms. Is up-to-date with his tetanus shot. Allergies: Coded Allergies: No Known Allergies (Unverified , 03/27/14) Patient History Past Medical History: see triage record Past Surgical History: unable to obtain Pertinent Family History: none Immunizations: UTD Reviewed Nursing Documentation: PMH: Agreed; PSxH: Agreed Nursing Documentation-PMH Hx Diabetes: No Hx Cerebrovascular Accident: No - MEMORY LOSS Hx Seizures: Yes Review of Systems All Other Systems: negative except mentioned in HPI Physical Exam Vital Signs Date Time Temp Pulse Resp B/P (MAP) Pulse Ox O2 Delivery O2 Flow Rate FiO2 03/16/19 20:21 98.4 83 16 112/81 (91) 96 Room Air Sp02 EP Interpretation: reviewed, normal General Appearance: well appearing, no apparent distress Head: normocephalic, atraumatic Eyes: bilateral eye normal inspection, bilateral eye PERRL ENT: hearing grossly normal, normal voice Neck: full range of motion, supple Respiratory: chest non-tender, no respiratory distress, no wheezing, speaking full sentences Cardiovascular #1: normal inspection, normal peripheral pulses, regular rate, rhythm, no murmur Gastrointestinal: normal inspection, no mass Musculoskeletal: back normal, digits/nails normal, gait/station normal, other - 5 sutures noted over site of a closed and healed laceration above left eyebrow Neurologic: normal inspection, alert, normal gait Psychiatric: normal inspection, judgement/insight normal, mood/affect normal Skin: no rash Lymphatic: normal inspection Procedures Additional Procedure Procedure Narrative 5 sutures were removed, 5-0 Prolene Medical Decision Making PA Attestation All my diagnosis and treatment plans were reviewed ad discussed with my supervising physician Dr. Culver Diagnostic Impression: Primary Impression: Encounter for removal of sutures ER Course 54-year-old male with history of tonic-clonic seizures currently controlled with valproic acid here requesting suture removal from his left side of forehead. Patient reports that the sutures were placed in by a different facility 8 days ago. Patient denies pain dizziness. Denies fever and chills, pus drainage from the site of sutures. Is in no apparent discomfort. Sitting comfortably and denies pain, and other associated symptoms. Is up-to-date with his tetanus shot. Ddx considered but are not limited to : Infected laceration repair, noninfected laceration repair, encounter for removal of sutures Vital signs: are WNL, pt. is afebrile H&PE are most consistent with: Encounter for removal of sutures ORDERS: Bactroban ED INTERVENTIONS: Suture removal DISCHARGE: At this time pt. is stable for d/c to home. Will provide printed patient care instructions, and any necessary prescriptions. Care plan and follow up instructions have been discussed with the patient prior to discharge. Last Vital Signs Date Time Temp Pulse Resp B/P (MAP) Pulse Ox O2 Delivery O2 Flow Rate FiO2 03/16/19 20:21 98.4 83 16 112/81 (91) 96 Room Air Disposition: HOME, SELF-CARE Condition: Stable Scripts Mupirocin (MUPIROCIN) 15 Gm Cream..g. 1 APPLIC TOPIC THREE TIMES A DAY, #15 GM Prov: Mattie Ramos 03/16/19 Patient Instructions: Suture Removal, Care After Mattie Ramos Mar 16, 2019 20:32
[2019-03-16] MEDS ORDERED: MUPIROCIN15 GM TOPIC (20:33)
[2019-03-16 20:40] VITALS: BP 112/81
--- NOTE | 2019-03-16 20:40 | NUR ---
ER DISCHARGE NOTE: Patient is cleared to be discharged per ERMD, pt is aox4, on room air, with stable vital signs. pt was given dc and prescription instructions, pt was able to verbalize understanding, pt id band removed without complications. pt is able to ambulate with steady gait. pt took all belongings. pt was seen for suture removal, completed and pt discharged.
== END 2019-03-16 20:40 | disposition home or self-care (01) ==
LOC: EMR 20:25
DX: S01.81XD Laceration without foreign body of other part of head, subsequent encounter (principal); Z48.02 Encounter for removal of sutures; X58.XXXD Exposure to other specified factors, subsequent encounter
CPT/HCPCS: 99282

== ENCOUNTER 2019-10-25 18:20 | Emergency (ER) | payer MEDICARE, OTHER ==
[~2019-10-25] VITALS: Ht 188 cm; Wt 85.7 kg
[~2019-10-25 18:20] MED LIST changes: +MUPIROCIN15 GM TOPIC
[2019-10-25 18:32] VITALS: BP 167/88
--- NOTE | 2019-10-25 18:40 | NUR ---
ED Nurse Note: patient walked into ED from home c/o left posterior ankle pain for 4 days. patient is alert awake breathing unlabored and even, speaking in full sentences. patient placed on a patient monitor.
[2019-10-25 18:45] VITALS: BP 141/92
[2019-10-25] MEDS ORDERED: Indomethacin 25mg cap ORAL SCH (19:00)
--- NOTE | 2019-10-25 19:06 | NUR ---
HAND-OFF: Report given to Tim Stinson RN, endorsed all plan of care to Tim Stinson RN.
--- NOTE | 2019-10-25 19:20 | Emergency Room Report ---
History of Present Illness General Chief Complaint: Pain Source: Patient Present Illness HPI 54-year-old male with history of gout here complaining of left ankle pain. Reports that inside 2 days ago. Patient reports that he might have ate food that is high in purine. Denies any alcohol consumption denies any fall or injury. Left ankle is warm to touch and swollen on the left lateral side. Has not taken medication for symptom relief. Denies chest pain shortness of breath , palpitation, headache and dizziness, fever and chills and URI symptoms. Denies history of hypertension reports high blood pressure may be elevated due to pain. Allergies: Coded Allergies: No Known Allergies (Unverified , 03/27/14) COVID-19 Screening Contact w/high risk pt: No Recent Travel to affected area: No Experienced COVID-19 symptoms?: No Patient History Past Medical History: see triage record Past Surgical History: none Pertinent Family History: none Immunizations: UTD Reviewed Nursing Documentation: PMH: Agreed; PSxH: Agreed Nursing Documentation-PMH Past Medical History: No History, Except For Hx Diabetes: No Hx Cerebrovascular Accident: No - MEMORY LOSS Hx Seizures: Yes Review of Systems All Other Systems: negative except mentioned in HPI Physical Exam Vital Signs Date Time Temp Pulse Resp B/P (MAP) Pulse Ox O2 Delivery O2 Flow Rate FiO2 10/25/19 18:32 98.6 98 11 167/88 (114) 100 Room Air Sp02 EP Interpretation: reviewed, normal General Appearance: no apparent distress, alert, GCS 15, non-toxic Head: normocephalic, atraumatic Eyes: bilateral eye normal inspection, bilateral eye PERRL ENT: hearing grossly normal, normal pharynx, no angioedema, normal voice Neck: full range of motion, supple/symm/no masses Respiratory: chest non-tender, lungs clear, normal breath sounds, no rhonchi, no wheezing, speaking full sentences Cardiovascular #1: no edema, no murmur Cardiovascular #2: 2+ dorsalis pedis (R), 2+ dorsalis pedis (L) Gastrointestinal: soft Musculoskeletal: back normal, digits/nails normal, swelling - Left ankle on the lateral side Neurologic: alert, oriented Psychiatric: normal inspection, judgement/insight normal Skin: no rash Lymphatic: no adenopathy Medical Decision Making PA Attestation Diagnosis and treatment plans were reviewed and discussed with my supervising physician Dr. Pearl Diagnostic Impression: Primary Impression: Gout attack ER Course 54-year-old male with history of gout here complaining of left ankle pain. Reports that inside 2 days ago. Patient reports that he might have ate food that is high in purine. Denies any alcohol consumption denies any fall or injury. Left ankle is warm to touch and swollen on the left lateral side. Has not taken medication for symptom relief. Denies chest pain shortness of breath , palpitation, headache and dizziness, fever and chills and URI symptoms. Denies history of hypertension reports high blood pressure may be elevated due to pain. Ddx considered but are not limited to: ankle sprain, ankle strain, ankle fracture, ankle contusion, gout attack Vital signs: are WNL, pt. is afebrile H&PE are most consistent with: Gout attack ORDERS: ankle x-ray, indomethacin ED INTERVENTIONS: Indomethacin p.o. DISCHARGE: At this time pt. is stable for d/c to home. Will provide printed patient care instructions, and any necessary prescriptions. Care plan and follow up instructions have been discussed with the patient prior to discharge. Patient to consider taking low purine diet, follow with primary doctor, referral may be considered if patient has multiple gout attacks also uric acid to be tested by primary doctor. If worsening symptoms return to the emergency room Other X-Ray Diagnostic Results Other X-Ray Diagnostic Results : X-Ray ordered: Left ankle x-ray # of Views/Limited Vs Complete: 3 View Indication: Swelling EP Interpretation: Yes PA Xray: Interpretation reviewed, by supervising MD, and agrees with findings. Interpretation: no dislocation, no fractures, other - Left ankle swelling Impression: No acute disease Electronically Signed by: Mattie ADHIKARI Scribwilliam Text History: Pain Findings: Mild talotibial joint space narrowing. Small spurs are seen in the anterior aspect of the tibia. Mild anterior joint effusion. Midfoot, hindfoot, distal tibia and fibula are unremarkable. Impression: 1. Mild talotibial joint space narrowing, mild anterior joint effusion. Last Vital Signs Date Time Temp Pulse Resp B/P (MAP) Pulse Ox O2 Delivery O2 Flow Rate FiO2 10/25/19 18:45 98.6 91 14 141/92 100 Room Air Status: improved Disposition: HOME, SELF-CARE Condition: Stable Scripts Indomethacin (Indomethacin) 50 Mg Capsule 50 MG ORAL Q8H for 5 Days, #15 CAP 0 Refills Prov: Mattie Ramos 10/25/19 Referrals: NOT CHOSEN IPA/MD,REFERRING (PCP) Patient Instructions: Gout, [id number] Additional Instructions: Avoid eating foods with lots of urine in it, follow-up with primary care doctor , your uric acid levels need to be tested for possible treatment with allopurinol if you get gout attacks quite frequently. Mattie Ramos Oct 25, 2019 19:20
[2019-10-25] MEDS ORDERED: INDOCIN25 MG ORAL (19:22)
[2019-10-25 19:35] VITALS: BP 137/84
--- NOTE | 2019-10-25 19:35 | NUR ---
ER DISCHARGE NOTE: Patient is cleared to be discharged per ERMD, pt is aox4, on room air, with stable vital signs. pt was given dc and prescription instructions, pt was able to verbalize understanding, pt id band removed without complications. pt is able to ambulate with steady gait. pt took all belongings.
== END 2019-10-25 19:35 | disposition home or self-care (01) ==
LOC: EMR 19:12
DX: M10.9 Gout, unspecified (principal); M25.472 Effusion, left ankle
CPT/HCPCS: 99283

== ENCOUNTER 2019-12-30 15:40 | Emergency (ER) | payer MEDICARE, OTHER ==
[~2019-12-30] VITALS: Ht 188 cm; Wt 83.9 kg
[2019-12-30 15:51] VITALS: BP 118/81
--- NOTE | 2019-12-30 15:51 | NUR ---
ED Nurse Note: Patient walked in to ED for medication refill, Valproic Acid for seizure. Stated that he ran out of his medication and missed his dose today. No episodes of active seizure at this time.
[2019-12-30] MEDS ORDERED: DEPAKOTE500 MG PO (15:59)
[2019-12-30] MEDS ORDERED: Depakote 500mg tab ORAL ONE (16:00)
--- NOTE | 2019-12-30 16:00 | NUR ---
ED Nurse Note: Medication not available in the pyxis, called pharmacy. Waiting for medication.
[2019-12-30 16:08] VITALS: BP 118/81
--- NOTE | 2019-12-30 16:08 | NUR ---
ED Nurse Note: Pt cleared by health care Provider for discharge. Pt refused to sign dc instructions and refused to take the prescription. Pt AAOx4, ambulatory. ID band removed. Pt left with all belongings.
--- NOTE | 2019-12-31 14:15 | Emergency Room Report ---
History of Present Illness General Chief Complaint: Medication Refill Source: Patient Present Illness HPI Patient is a 54-year-old male presents for medication refill. Reports having prior history of seizure disorder for which he takes valproic acid. Patient reports having missed his dose this morning. Denies any current complaints. Had not been having any seizures. Last dose of medication was last night. 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 Patient History Past Medical History: see triage record Reviewed Nursing Documentation: PMH: Agreed; PSxH: Agreed Nursing Documentation-PMH Hx Diabetes: No Hx Cerebrovascular Accident: No - MEMORY LOSS Hx Seizures: Yes Review of Systems All Other Systems: negative except mentioned in HPI Physical Exam Vital Signs Date Time Temp Pulse Resp B/P (MAP) Pulse Ox O2 Delivery O2 Flow Rate FiO2 12/30/19 15:46 98.8 87 16 118/81 (93) 95 Room Air General Appearance: well appearing, no apparent distress, alert, GCS 15 Head: normocephalic, atraumatic ENT: hearing grossly normal, normal voice Neck: full range of motion, supple Respiratory: lungs clear, no respiratory distress, speaking full sentences Cardiovascular #1: normal inspection Gastrointestinal: normal inspection, normal bowel sounds, non tender Musculoskeletal: no calf tenderness Neurologic: normal gait Psychiatric: mood/affect normal Skin: no rash Medical Decision Making Diagnostic Impression: Primary Impression: Medication refill ER Course Patient present for medication refill. Depakote was ordered for the patient due to missing previous medication dose and patient's was given a prescription for valproic acid. Patient for some reason did not want to accept the prescription after this was made. He subsequent left the hospital. Patient appears to be capable of self-care. Last Vital Signs Date Time Temp Pulse Resp B/P (MAP) Pulse Ox O2 Delivery O2 Flow Rate FiO2 12/30/19 16:08 98.8 87 16 118/81 95 Room Air Status: unchanged Disposition: HOME, SELF-CARE Condition: Stable Scripts Divalproex Sodium (Depakote) 500 Mg Tablet. 500 MG PO BID, #30 TAB Prov: Brooks Finnegan MD 12/30/19 Referrals: NON PHYSICIAN (PCP) Patient Instructions: Medicine Refill at the Emergency Department Additional Instructions: Follow up with your doctor for further medication refills. Return if any concerns Brooks Finnegan MD Dec 31, 2019 14:15
== END 2019-12-30 16:08 | disposition home or self-care (01) ==
LOC: EMR 16:05
DX: G40.909 Epilepsy, unspecified, not intractable, without status epilepticus (principal); Z76.0 Encounter for issue of repeat prescription
CPT/HCPCS: 99282

== ENCOUNTER 2020-01-25 18:56 | Emergency (ER) | payer MEDICARE, OTHER ==
[~2020-01-25] VITALS: Ht 188 cm; Wt 83.9 kg
[~2020-01-25 18:56] MED LIST changes: +DEPAKOTE500 MG PO
--- NOTE | 2020-01-25 19:07 | NUR ---
ED Nurse Note: pt presents to ED stating that he needs a refill for valproic acid, states he last took some last PM. pt does not know the dose he takes
[2020-01-25] MEDS ORDERED: DEPAKOTE500 MG PO (19:13)
--- NOTE | 2020-01-25 19:13 | Emergency Room Report ---
History of Present Illness General Chief Complaint: Medication Refill Present Illness HPI 54-year-old male with history of seizure disorder who takes valproic acid here requesting refill of his valproic acid. Reports that he took the last dose last night. Has already established a primary doctor and neurologist. Denies any recent seizure. Denies any urinary bowel incontinence. Patient was last seen [facility] December 30, 2019 for the same complaint. Patient is aware that we can only give 2-week supply at this time. Patient agrees to this treatment. Denies all other complaints. Patient is neurovascularly intact. Allergies: Coded Allergies: No Known Allergies (Unverified , 03/27/14) COVID-19 Screening Contact w/high risk pt: No Recent Travel to affected area: No Experienced COVID-19 symptoms?: No COVID-19 Testing performed [employer] REPRESENTATIVE [employer] ASSESSOR: No Patient History Past Medical History: see triage record Past Surgical History: none Pertinent Family History: none Immunizations: UTD Reviewed Nursing Documentation: PMH: Agreed; PSxH: Agreed Nursing Documentation-PMH Hx Diabetes: No Hx Cerebrovascular Accident: No - MEMORY LOSS Hx Seizures: Yes Review of Systems All Other Systems: negative except mentioned in HPI Physical Exam Vital Signs Date Time Temp Pulse Resp B/P (MAP) Pulse Ox O2 Delivery O2 Flow Rate FiO2 01/25/20 19:00 98.6 59 18 100 Room Air Sp02 EP Interpretation: reviewed, normal General Appearance: well appearing, no apparent distress Head: normocephalic, atraumatic Eyes: bilateral eye normal inspection ENT: hearing grossly normal, normal voice Neck: full range of motion, supple Respiratory: no respiratory distress, speaking full sentences Cardiovascular #1: regular rate, rhythm, no murmur Gastrointestinal: non tender, soft Rectal: deferred Genitourinary: no CVA tenderness Musculoskeletal: no calf tenderness Neurologic: alert, normal gait Psychiatric: mood/affect normal Skin: normal color, no rash Lymphatic: no adenopathy Medical Decision Making PA Attestation All my diagnosis and treatment plans were reviewed ad discussed with my supervising physician Dr. Strong Diagnostic Impression: Primary Impression: Encounter for medication refill ER Course 54-year-old male with history of seizure disorder who takes valproic acid here requesting refill of his valproic acid. Reports that he took the last dose last night. Has already established a primary doctor and neurologist. Denies any recent seizure. Denies any urinary bowel incontinence. Patient was last seen [facility] December 30, 2019 for the same complaint. Patient is aware that we can only give 2-week supply at this time. Patient agrees to this treatment. Denies all other complaints. Patient is neurovascularly intact. Ddx considered but are not limited to: Tonic-clonic seizure, absence seizure, seizure complication, encounter for medication refill Vital signs: are WNL, pt. is afebrile H&PE are most consistent with: Encounter for medication refill of controlled seizure ORDERS: Valproic acid ER intervention: none DISCHARGE: At this time pt. is stable for d/c to home. Will provide printed patient care instructions, and any necessary prescriptions. Care plan and follow up instructions have been discussed with the patient prior to discharge. Gave a list of family clinics that patient can follow-up with establish a primary doctor, take medication as directed, if worsening symptoms return to the emergency room. No imaging is needed at this time patient denies any recent seizure activity. Last Vital Signs Date Time Temp Pulse Resp B/P (MAP) Pulse Ox O2 Delivery O2 Flow Rate FiO2 01/25/20 19:00 98.6 59 18 100 Room Air Disposition: HOME, SELF-CARE Condition: Stable Scripts Divalproex Sodium (Depakote) 500 Mg Tablet. 500 MG PO BID, #30 TAB Prov: Mattie Ramos 01/25/20 Patient Instructions: Medicine Refill at the Emergency Department Additional Instructions: Take medication as prescribed, follow-up with your primary doctor for referral to neurologist, if worsening symptoms return to the emergency room Mattie Ramos Jan 25, 2020 19:12
--- NOTE | 2020-01-25 19:19 | NUR ---
ED Nurse Note: Pt cleared by ERMD for discharge. DC instructions/prescription was given and explained to pt and verbalized understanding of teachings. All medical deviecs such as ID band removed. Pt is AAO x4, ambulatory and left with all personal belongings.
== END 2020-01-25 19:19 | disposition home or self-care (01) ==
LOC: EMR 19:15
DX: Z76.0 Encounter for issue of repeat prescription (principal); G40.909 Epilepsy, unspecified, not intractable, without status epilepticus
CPT/HCPCS: 99282